=== PATIENT | female | born 1930 | race Caucasian/White ===

== ENCOUNTER 2018-03-26 01:05 | Inpatient (IN) | payer MEDICARE ==
[2018-03-26] MEDS ORDERED: SODIUM CHLORIDE 0.9% 500 ML IV ONE (02:17)
--- NOTE | 2018-03-26 02:26 | ED ---
Altered Mental Status HPI - General Source: police, EMS Mode of arrival: EMS Limitations: no limitations <Radha Rivera - Last Filed: 03/26/18 02:18> <Ike Nathan - Last Filed: 03/26/18 07:22> - General Chief Complaint: Altered Mental Status Stated Complaint: Altered mental status Time Seen by Provider: 03/26/18 01:59 - History of Present Illness Initial Comments: 87-year-old female patient is brought to the emergency department by police for altered mental status. They state they received a 911 call; patient stated that she did know where she was and asked for help. Upon police arrival patient was quite confused. Police stated that her house was in disarray and she only had moldy cheese in the refridgerator and nothing else. Upon arrival patient remains confused. She is oriented 1 only. States does not know the date, year, or month that we're in. States that she feels fine. Denies any physical symptoms. Patient denies any recent rash, fever, chills, shortness breath, chest pain, abdominal pain, nausea, vomiting, diarrhea, constipation, back pain, numbness, tingling, dizziness, weakness, hematuria, dysuria, urinary urgency, urinary frequency, headache, visual changes, or any other complaints. (Radha Rivera) - Related Data Home Medications Medication Instructions Recorded Confirmed Levothyroxine Sodium [Synthroid] 50 mcg PO DAILY 03/26/18 03/26/18 Allergies Allergy/AdvReac Type Severity Reaction Status Date / Time Unable to Assess Allergy Verified 03/26/18 01:26 Review of Systems ROS Other: All systems not noted in ROS Statement are negative. <Radha Rivera - Last Filed: 03/26/18 02:18> ROS Other: All systems not noted in ROS Statement are negative. <Ike Nathan - Last Filed: 03/26/18 07:22> ROS Statement: Those systems with pertinent positive or pertinent negative responses have been documented in the HPI. Past Medical History Past Medical History: Eye Disorder Additional Past Medical History / Comment(s): Very limited History of Any Multi-Drug Resistant Organisms: None Reported Past Surgical History: Adenoidectomy, Appendectomy, Tonsillectomy Past Psychological History: Unable to Obtain Smoking Status: Never smoker Past Alcohol Use History: Rare Past Drug Use History: None Reported <Radha Rivera Estephanie - Last Filed: 03/26/18 02:18> General Exam Limitations: no limitations General appearance: alert, in no apparent distress, other (This is a thin appearing elderly female patient in no acute distress. Patient is quite pleasant but confused. Vital signs upon presentation are temperature 98.0F, pulse 83, respirations 18, blood pressure 127/64, pulse ox 99% on room air.) Eye exam: Present: normal appearance, PERRL, EOMI. Absent: scleral icterus, conjunctival injection, periorbital swelling ENT exam: Present: normal exam, normal oropharynx, mucous membranes moist Neck exam: Present: normal inspection. Absent: tenderness, meningismus, lymphadenopathy Respiratory exam: Present: normal lung sounds bilaterally. Absent: respiratory distress, wheezes, rales, rhonchi, stridor Cardiovascular Exam: Present: regular rate, normal rhythm, normal heart sounds. Absent: systolic murmur, diastolic murmur, rubs, gallop, clicks GI/Abdominal exam: Present: soft, normal bowel sounds. Absent: distended, tenderness, guarding, rebound, rigid Neurological exam: Present: alert, CN II-XII intact, other (Strength in all 4 extremities is 5/5.). Absent: oriented X3 (Oriented 1) Psychiatric exam: Present: normal affect, normal mood Skin exam: Present: warm, dry, intact, normal color. Absent: rash <Radha Rivera Estephanie - Last Filed: 03/26/18 02:18> Vital Signs 03/26/18 03/26/18 03/26/18 01:18 04:04 04:46 Temperature 98.0 F Pulse Rate 83 77 73 Respiratory 18 18 18 Rate Blood Pressure 127/64 157/106 154/64 O2 Sat by Pulse 99 100 100 Oximetry 03/26/18 03/26/18 03/26/18 05:48 06:26 07:20 Temperature Pulse Rate 70 65 68 Respiratory 18 18 18 Rate Blood Pressure 158/70 147/67 138/68 O2 Sat by Pulse 97 97 95 Oximetry Medical Decision Making - Lab Data Result diagrams: 03/26/18 02:20 03/26/18 02:20 <Ike Nathan - Last Filed: 03/26/18 07:22> - Lab Data Lab Results 03/26/18 03/26/1803/26/18 Range/Units 02:20 02:20 02:20 WBC 7.0 (3.8-10.6) k/uL RBC 4.38 (3.80-5.40) m/uL Hgb 13.8 (11.4-16.0) gm/dL Hct 40.2 (34.0-46.0) % MCV 91.8 (80.0-100.0) fL MCH 31.5 (25.0-35.0) pg MCHC 34.3 (31.0-37.0) g/dL RDW 12.6 (11.5-15.5) % Plt Count 286 (150-450) k/uL Neutrophils % 54 % Lymphocytes % 35 % Monocytes % 7 % Eosinophils % 1 % Basophils % 1 % Neutrophils # 3.7 (1.3-7.7) k/uL Lymphocytes # 2.5 (1.0-4.8) k/uL Monocytes # 0.5 (0-1.0) k/uL Eosinophils # 0.1 (0-0.7) k/uL Basophils # 0.0 (0-0.2) k/uL PT (9.0-12.0) sec INR (<1.2) APTT (22.0-30.0) sec Sodium 142 (137-145) mmol/L Potassium 4.4 (3.5-5.1) mmol/L Chloride 105 (98-107) mmol/L Carbon Dioxide 25 (22-30) mmol/L Anion Gap 12 mmol/L BUN 25 H (7-17) mg/dL Creatinine 1.03 (0.52-1.04) mg/dL Est GFR (CKD-EPI)AfAm 57 (>60 ml/min/1.73 sqM) Est GFR (CKD-EPI)NonAf 50 (>60 ml/min/1.73 sqM) Glucose 102 H (74-99) mg/dL POC Glucose (mg/dL) (75-99) mg/dL POC Glu Health Service Worker ID Calcium 9.3 (8.4-10.2) mg/dL Total Bilirubin 0.4 (0.2-1.3) mg/dL AST 23 (14-36) U/L ALT 26 (9-52) U/L Alkaline Phosphatase 62 (38-126) U/L Total Creatine Kinase 44 (30-135) U/L CK-MB (CK-2) 1.0 (0.0-2.4) ng/mL CK-MB (CK-2) Rel Index 2.3 Troponin I <0.012 (0.000-0.034) ng/mL Total Protein 6.5 (6.3-8.2) g/dL Albumin 4.1 (3.5-5.0) g/dL Urine Color Urine Appearance (Clear) Urine pH (5.0-8.0) Ur Specific [place] (1.001-1.035) Urine Protein (Negative) Urine Glucose (UA) (Negative) Urine Ketones (Negative) Urine Blood (Negative) Urine Nitrite (Negative) Urine Bilirubin (Negative) Urine Urobilinogen (<2.0) mg/dL Ur Leukocyte Esterase (Negative) Urine RBC (0-5) /hpf Urine WBC (0-5) /hpf Ur Squamous Epith Cells (0-4) /hpf Hyaline Casts (0-2) /lpf Urine Mucus (None) /hpf Urine Opiates Screen (NotDetected) Ur Oxycodone Screen (NotDetected) Urine Methadone Screen (NotDetected) Ur Propoxyphene Screen (NotDetected) Ur Barbiturates Screen (NotDetected) U Tricyclic Antidepress (NotDetected) Ur Phencyclidine Scrn (NotDetected) Ur Amphetamines Screen (NotDetected) U Methamphetamines Scrn (NotDetected) U Benzodiazepines Scrn (NotDetected) Urine Cocaine Screen (NotDetected) U Marijuana (THC) Screen (NotDetected) 03/26/18 03/26/18 03/26/18 Range/Units 02:20 02:27 02:30 WBC (3.8-10.6) k/uL RBC (3.80-5.40) m/uL Hgb (11.4-16.0) gm/dL Hct (34.0-46.0) % MCV (80.0-100.0) fL MCH (25.0-35.0) pg MCHC (31.0-37.0) g/dL RDW (11.5-15.5) % Plt Count (150-450) k/uL Neutrophils % % Lymphocytes % % Monocytes % % Eosinophils % % Basophils % % Neutrophils # (1.3-7.7) k/uL Lymphocytes # (1.0-4.8) k/uL Monocytes # (0-1.0) k/uL Eosinophils # (0-0.7) k/uL Basophils # (0-0.2) k/uL PT 10.3 (9.0-12.0) sec INR 1.1 (<1.2) APTT 21.9 L (22.0-30.0) sec Sodium (137-145) mmol/L Potassium (3.5-5.1) mmol/L Chloride (98-107) mmol/L Carbon Dioxide (22-30) mmol/L Anion Gap mmol/L BUN (7-17) mg/dL Creatinine (0.52-1.04) mg/dL Est GFR (CKD-EPI)AfAm (>60 ml/min/1.73 sqM) Est GFR (CKD-EPI)NonAf (>60 ml/min/1.73 sqM) Glucose (74-99) mg/dL POC Glucose (mg/dL) 100 H (75-99) mg/dL POC Glu Health Service Worker ID Tripp, Talisha Calcium (8.4-10.2) mg/dL Total Bilirubin (0.2-1.3) mg/dL AST (14-36) U/L ALT (9-52) U/L Alkaline Phosphatase (38-126) U/L Total Creatine Kinase (30-135) U/L CK-MB (CK-2) (0.0-2.4) ng/mL CK-MB (CK-2) Rel Index Troponin I (0.000-0.034) ng/mL Total Protein (6.3-8.2) g/dL Albumin (3.5-5.0) g/dL Urine Color Yellow Urine Appearance Clear (Clear) Urine pH 5.5 (5.0-8.0) Ur Specific [place] 1.023 (1.001-1.035) Urine Protein Trace H (Negative) Urine Glucose (UA) Negative (Negative) Urine Ketones Trace H (Negative) Urine Blood Negative (Negative) Urine Nitrite Negative (Negative) Urine Bilirubin Negative (Negative) Urine Urobilinogen <2.0 (<2.0) mg/dL Ur Leukocyte Esterase Trace H (Negative) Urine RBC <1 (0-5) /hpf Urine WBC 3 (0-5) /hpf Ur Squamous Epith Cells 1 (0-4) /hpf Hyaline Casts 5 H (0-2) /lpf Urine Mucus Rare H (None) /hpf Urine Opiates Screen Not Detected (NotDetected) Ur Oxycodone Screen Not Detected (NotDetected) Urine Methadone Screen Not Detected (NotDetected) Ur Propoxyphene Screen Not Detected (NotDetected) Ur Barbiturates Screen Not Detected (NotDetected) U Tricyclic Antidepress Not Detected (NotDetected) Ur Phencyclidine Scrn Not Detected (NotDetected) Ur Amphetamines Screen Not Detected (NotDetected) U Methamphetamines Scrn Not Detected (NotDetected) U Benzodiazepines Scrn Not Detected (NotDetected) Urine Cocaine Screen Not Detected (NotDetected) U Marijuana (THC) Screen Not Detected (NotDetected) Disposition <Radha Rivera - Last Filed: 03/26/18 02:18> Is patient prescribed a controlled substance at d/c from ED?: No <Ike Nathan - Last Filed: 03/26/18 07:22> Clinical Impression: Dementia Disposition: ADMITTED IP TO THIS HOSP Condition: Poor Instructions: Altered Mental Status (ED) Referrals: None,Stated [Primary Care Provider] - 1-2 days
[2018-03-26 02:36] LABS: Basophils % (A) 1 %; Eosinophils # (A) 0.1 k/uL (0-0.7); Eosinophils % (A) 1 %; HCT 40.2 % (34.0-46.0); HGB 13.8 gm/dL (11.4-16.0); Lymphocytes # (A) 2.5 k/uL (1.0-4.8); Lymphocytes % (A) 35 %; MCH 31.5 pg (25.0-35.0); MCHC 34.3 g/dL (31.0-37.0); MCV 91.8 fL (80.0-100.0); Mean Platelet Volume 6.7; Monocytes # (A) 0.5 k/uL (0-1.0); Monocytes % (A) 7 %; Neutrophils # (A) 3.7 k/uL (1.3-7.7); Neutrophils % (A) 54 %; Platelet Count 286 k/uL (150-450); RBC 4.38 m/uL (3.80-5.40); RDW 12.6 % (11.5-15.5)
[2018-03-26 02:47] LABS: Albumin 4.1 g/dL (3.5-5.0); Calcium 9.3 mg/dL (8.4-10.2); Potassium 4.4 mmol/L (3.5-5.1); Total Bilirubin 0.4 mg/dL (0.2-1.3); Total Protein 6.5 g/dL (6.3-8.2)
[2018-03-26 02:48] LABS: Glucose,Whole Blood 100 mg/dL (75-99)
[2018-03-26 02:53] LABS: Appearance,Urine Clear (Clear); Bilirubin,Urine Negative (Negative); Blood,Urine Negative (Negative); Color,Urine Yellow; Glucose,Urine (UA) Negative (Negative); Hyaline Casts,Urine 5 /lpf (0-2); Ketones,Urine Trace (Negative); Leukocyte Esterase,Urine Trace (Negative); Mucus,Urine Rare /hpf; Nitrite,Urine Negative (Negative); PH, Urine 5.5 (5.0-8.0); Protein,Urine Trace (Negative); RBC,Urine <1 /hpf (0-5); Specific Gravity,Urine 1.023 (1.001-1.035); Squamous Epithelial Cell,Urine 1 /hpf (0-4); Urobilinogen,Urine <2.0 mg/dL (<2.0); WBC,Urine 3 /hpf (0-5)
[2018-03-26 02:56] LABS: Creatine Kinase 44 U/L (30-135)
[2018-03-26 02:59] LABS: INR 1.1 (<1.2); Prothrombin Time 10.3 sec (9.0-12.0)
[2018-03-26 02:59] LABS: Amphetamine Screen,Urine Not Detected (NotDetected); Barbiturate Screen,Urine Not Detected (NotDetected); Benzodiazepines Screen,Urine Not Detected (NotDetected); Cocaine Screen,Urine Not Detected (NotDetected); Methadone Screen, Urine Not Detected (NotDetected); Opiate Screen,Urine Not Detected (NotDetected); Oxycodone Screen, Urine Not Detected (NotDetected); Phencyclidine Screen,Urine Not Detected (NotDetected); Tricyclic Antidepressant,Urine Not Detected (NotDetected); Urn Cannabinoid Scrn Not Detected (NotDetected)
--- NOTE | 2018-03-26 03:00 | XR ---
EXAMINATION TYPE: XR chest 2V DATE OF EXAM: 03/26/2018 COMPARISON: NONE HISTORY: Altered mental status TECHNIQUE: Frontal and lateral views of the chest are obtained. FINDINGS: There is no heart failure nor confluent pneumonic infiltrate. Costophrenic angles are robert r. Thoracic aorta is atheromatous. Bones are osteopenic. IMPRESSION: No active cardiopulmonary disease. Atheromatous aorta. Normal heart.
[2018-03-26 03:09] LABS: Troponin I <0.012 ng/mL (0.000-0.034)
[2018-03-26] MEDS ORDERED: LORazepam 2 MG/ML INJ IV STA ×2 (03:17→04:01)
[2018-03-26 03:18] LABS: Partial Thromboplastin Time 21.9 sec (22.0-30.0)
[2018-03-26] MEDS ORDERED: NALOXONE 0.4 MG/ML 1 ML VIAL IV PRN (07:23)
--- NOTE | 2018-03-26 12:26 | P.HPIM ---
History of Present Illness H&P Date: 03/26/18 This is an 87-year-old female with past medical history of dementia was admitted to the hospital for confusion and altered mental status patient was more confused last night and called 911 so was brought to the hospital patient lives alone patient did give any history at this time and the family was available at bedside also not able to give any history at this time patient is still confused doesn't have any complaints at this time Review of systems unable to get due to the current condition of the patient Constitutional: No acute distress, confused Eyes: Anicteric sclerae, moist conjunctiva, no lid-lag PERRLA ENMT: NC/AT Oropharynx clear, no erythema, exudates Neck: Supple, Lungs: Clear to auscultation Clear to percussion Normal respiratory effort, no accessory muscle use Cardiovascular: Heart regular in rate and rhythm, No murmurs, gallops, or rubs No peripheral edema Abdominal: Soft Nontender, no guarding, rebound or rigidity Abdomen moving with respiration we that by the lesions are not Tao [place] will be on Skin: Normal temperature, tone, texture, turgor No induration No subcutaneous nodules No rash, lesions No ulcers Extremities: No digital cyanosis No clubbing Pedal pulses intact and symmetrical Radial pulses intact and symmetrical Normal gait and station No calf tenderness Psychiatric:Alert confused Neuro: Generalized weakness Past medical history dementia Surgical history unable to do not this time Social history patient lives alone unable to lower the patient smokes are not Laboratory Results - last 24 hr 03/26/18 03/26/18 03/26/18 02:20 02:20 02:20 WBC 7.0 RBC 4.38 Hgb 13.8 Hct 40.2 MCV 91.8 MCH 31.5 MCHC 34.3 RDW 12.6 Plt Count 286 Neutrophils % 54 Lymphocytes % 35 Monocytes % 7 Eosinophils % 1 Basophils % 1 Neutrophils # 3.7 Lymphocytes # 2.5 Monocytes # 0.5 Eosinophils # 0.1 Basophils # 0.0 PT INR APTT Sodium 142 Potassium 4.4 Chloride 105 Carbon Dioxide 25 Anion Gap 12 BUN 25 H Creatinine 1.03 Est GFR (CKD-EPI)AfAm 57 Est GFR (CKD-EPI)NonAf 50 Glucose 102 H POC Glucose (mg/dL) POC Glu Cooler Operator ID Calcium 9.3 Total Bilirubin 0.4 AST 23 ALT 26 Alkaline Phosphatase 62 Total Creatine Kinase 44 CK-MB (CK-2) 1.0 CK-MB (CK-2) Rel Index 2.3 Troponin I <0.012 Total Protein 6.5 Albumin 4.1 Urine Color Urine Appearance Urine pH Ur Specific [place] Urine Protein Urine Glucose (UA) Urine Ketones Urine Blood Urine Nitrite Urine Bilirubin Urine Urobilinogen Ur Leukocyte Esterase Urine RBC Urine WBC Ur Squamous Epith Cells Hyaline Casts Urine Mucus Urine Opiates Screen Ur Oxycodone Screen Urine Methadone Screen Ur Propoxyphene Screen Ur Barbiturates Screen U Tricyclic Antidepress Ur Phencyclidine Scrn Ur Amphetamines Screen U Methamphetamines Scrn U Benzodiazepines Scrn Urine Cocaine Screen U Marijuana (THC) Screen 03/26/18 03/26/18 03/26/18 02:20 02:27 02:30 WBC RBC Hgb Hct MCV MCH MCHC RDW Plt Count Neutrophils % Lymphocytes % Monocytes % Eosinophils % Basophils % Neutrophils # Lymphocytes # Monocytes # Eosinophils # Basophils # PT 10.3 INR 1.1 APTT 21.9 L Sodium Potassium Chloride Carbon Dioxide Anion Gap BUN Creatinine Est GFR (CKD-EPI)AfAm Est GFR (CKD-EPI)NonAf Glucose POC Glucose (mg/dL) 100 H POC Glu Cooler Operator ID Tripp, Talisha Calcium Total Bilirubin AST ALT Alkaline Phosphatase Total Creatine Kinase CK-MB (CK-2) CK-MB (CK-2) Rel Index Troponin I Total Protein Albumin Urine Color Yellow Urine Appearance Clear Urine pH 5.5 Ur Specific [place] 1.023 Urine Protein Trace H Urine Glucose (UA) Negative Urine Ketones Trace H Urine Blood Negative Urine Nitrite Negative Urine Bilirubin Negative Urine Urobilinogen <2.0 Ur Leukocyte Esterase Trace H Urine RBC <1 Urine WBC 3 Ur Squamous Epith Cells 1 Hyaline Casts 5 H Urine Mucus Rare H Urine Opiates Screen Not Detected Ur Oxycodone Screen Not Detected Urine Methadone Screen Not Detected Ur Propoxyphene Screen Not Detected Ur Barbiturates Screen Not Detected U Tricyclic Antidepress Not Detected Ur Phencyclidine Scrn Not Detected Ur Amphetamines Screen Not Detected U Methamphetamines Scrn Not Detected U Benzodiazepines Scrn Not Detected Urine Cocaine Screen Not Detected U Marijuana (THC) Screen Not Detected Vital Signs Temp Pulse Resp BP Pulse Ox 98.0 F 83 18 127/64 99 03/26/18 01:18 03/26/18 01:18 03/26/18 01:18 03/26/18 01:18 03/26/18 01:18 Assessment and plan Altered mental status exact etiology not clear we will check MRI of the brain Currently we will check for any source of infection Patient is confused and not able to make any decisions at this time Likely the patient have advanced dementia DVT and GI prophylaxis the patient is an ambulatory Past Medical History Past Medical History: Thyroid Disorder Additional Past Medical History / Comment(s): Sister and Cierra WEISS states that pt does not currently have a PCP and has not gone to the doctors much the past several years. Other hx: Severe memory impairment, hypothyroid, gait dysfunction, sinus problems. History of Any Multi-Drug Resistant Organisms: None Reported Past Surgical History: Adenoidectomy, Appendectomy, Tonsillectomy Additional Past Surgical History / Comment(s): Bilateral cataract removal with lens implants. Past Anesthesia/Blood Transfusion Reactions: No Reported Reaction Smoking Status: Never smoker - Past Family History Father Family Medical History: Myocardial Infarction (RI) Additional Family Medical History / Comment(s): Father of a RI at the age of 80 yrs. Mother Family Medical History: Dementia Brother(s) Family Medical History: Dementia Medications and Allergies Home Medications Medication Instructions Recorded Confirmed Type Levothyroxine Sodium [Synthroid] 50 mcg PO DAILY 03/26/18 03/26/18 History Allergies Allergy/AdvReac Type Severity Reaction Status Date / Time Unable to Assess Allergy Verified 03/26/18 07:42 Physical Exam Vitals: Vital Signs Temp Pulse Resp BP Pulse Ox 03/26/18 09:34 64 16 108/78 98 03/26/18 07:20 68 18 138/68 95 03/26/18 06:26 65 18 147/67 97 03/26/18 05:48 70 18 158/70 97 03/26/18 04:46 73 18 154/64 100 03/26/18 04:04 77 18 157/106 100 03/26/18 01:18 98.0 F 83 18 127/64 99 Intake and Output 03/25/18 03/26/18 03/26/18 22:59 06:59 14:59 Other: Weight 68.039 kg Results CBC & Chem 7: 03/26/18 02:20 03/26/18 02:20 Labs: Abnormal Lab Results - Last 24 Hours (Table) 03/26/18 03/26/1818 Range/Units 02:20 02:20 02:27 APTT 21.9 L (22.0-30.0) sec BUN 25 H (7-17) mg/dL Glucose 102 H (74-99) mg/dL POC Glucose (mg/dL) 100 H (75-99) mg/dL Urine Protein (Negative) Urine Ketones (Negative) Ur Leukocyte Esterase (Negative) Hyaline Casts (0-2) /lpf Urine Mucus (None) /hpf 03/26/18 Range/Units 02:30 APTT (22.0-30.0) sec BUN (7-17) mg/dL Glucose (74-99) mg/dL POC Glucose (mg/dL) (75-99) mg/dL Urine Protein Trace H (Negative) Urine Ketones Trace H (Negative) Ur Leukocyte Esterase Trace H (Negative) Hyaline Casts 5 H (0-2) /lpf Urine Mucus Rare H (None) /hpf Thrombosis Risk Factor Assmnt - Choose All That Apply Any of the Below Risk Factors Present?: Yes Other Risk Factors: Yes Each Risk Factor Represents 3 Points: Age 75 years or older Other congenital or acquired thrombophilia - If yes, enter type in comment: No Thrombosis Risk Factor Assessment Total Risk Factor Score: 3 Thrombosis Risk Factor Assessment Level: Moderate Risk
[2018-03-26] MEDS: LEVOTHYROXINE 50 MCG TAB PO SCH (12:47)
[2018-03-26] MEDS ORDERED: ONDANSETRON 4 MG/2 ML VIAL IVP PRN (13:51)
[2018-03-26] MEDS ORDERED: ACETAMINOPHEN TAB 325 MG TAB PO PRN (13:51)
--- NOTE | 2018-03-26 16:56 | XR ---
EXAMINATION TYPE: XR ribs bilat w pa chest xray DATE OF EXAM: 03/26/2018 COMPARISON: Today HISTORY: Bilateral rib pain. Fall. technique 9 views Findings Heart and mediastinum are within normal limits. Thoracic aorta is atheromatous. There is no pleural e ffusion or pneumothorax. I see no displaced rib fracture. Lungs are clear of infiltrate. IMPRESSION: No active cardiopulmonary disease. Normal heart. No rib fracture seen.
--- NOTE | 2018-03-26 17:11 | MR ---
MR brain without contrast HISTORY: Altered mental status, dementia Multiplanar multisequence imaging through the brain, no comparisons Fast brain protocol utilized due to patient's condition. Periventricular scattered and confluent hyperintensities present on inversion recovery and T2-weighte d sequences. Corpus callosum, pituitary, cervical medullary junction, cerebellopontine angles are wit hin normal limits. There is no restricted diffusion. No hemorrhage or hydrocephalus. Cortical atrophy is likely age-related. The orbits show symmetric appearance. There are normal vascular flow voids. IMPRESSION: Chronic small vessel ischemia, age related atrophy. Follow-up as indicated.
[2018-03-27] MEDS: LEVOTHYROXINE 50 MCG TAB PO SCH (06:05)
[2018-03-27] MEDS: ACETAMINOPHEN TAB 325 MG TAB PO PRN (08:30)
[2018-03-27 08:57] LABS: Basophils # (A) 0.1 k/uL (0-0.2); Basophils % (A) 1 %; Eosinophils # (A) 0.1 k/uL (0-0.7); Eosinophils % (A) 2 %; HCT 38.6 % (34.0-46.0); Lymphocytes # (A) 1.9 k/uL (1.0-4.8); Lymphocytes % (A) 32 %; MCH 31.1 pg (25.0-35.0); MCHC 33.8 g/dL (31.0-37.0); Mean Platelet Volume 6.6; Monocytes # (A) 0.4 k/uL (0-1.0); Monocytes % (A) 7 %; Neutrophils # (A) 3.3 k/uL (1.3-7.7); Neutrophils % (A) 57 %; Platelet Count 236 k/uL (150-450); RBC 4.19 m/uL (3.80-5.40); RDW 13.3 % (11.5-15.5); WBC 5.9 k/uL (3.8-10.6)
[2018-03-27 09:22] LABS: Albumin 3.6 g/dL (3.5-5.0); Potassium 4.7 mmol/L (3.5-5.1); Total Bilirubin 0.9 mg/dL (0.2-1.3); Total Protein 5.9 g/dL (6.3-8.2)
--- NOTE | 2018-03-27 16:05 | P.PN ---
Subjective Progress Note Date: 03/27/18 Principal diagnosis: Patient confused not able to give any history at this time Constitutional: No acute distress, conversant, pleasant Eyes: Anicteric sclerae, moist conjunctiva, no lid-lag PERRLA ENMT: Cranial nerves grossly intact Neck: Supple, FROM, no masses, or JVD No carotid bruits No thyromegaly Lungs: Clear to auscultation Clear to percussion Normal respiratory effort, no accessory muscle use Cardiovascular: Heart regular in rate and rhythm, No murmurs, gallops, or rubs No peripheral edema Abdominal: Soft Nontender, no guarding, rebound or rigidity Abdomen moving with respiration Skin: Normal temperature, tone, texture, turgor No induration No subcutaneous nodules No rash, lesions No ulcers Extremities: No digital cyanosis No clubbing Pedal pulses intact and symmetrical Radial pulses intact and symmetrical Normal gait and station No calf tenderness Psychiatric: Confused Neuro: Generalized weakness Vital Signs - 24 hr 03/26/18 03/27/18 03/27/18 23:00 05:00 15:00 Temperature 97.6 F 96.6 F L 97.6 F Pulse Rate [ 90 70 79 Right] Respiratory 16 16 18 Rate Blood Pressure 143/68 125/59 131/60 [Left Arm] O2 Sat by Pulse 97 96 98 Oximetry Diabetes panel 03/27/18 Range/Units 08:10 Sodium 139 (137-145) mmol/L Potassium 4.7 (3.5-5.1) mmol/L Chloride 103 (98-107) mmol/L Carbon Dioxide 26 (22-30) mmol/L BUN 15 (7-17) mg/dL Creatinine 0.87 (0.52-1.04) mg/dL Glucose 141 H (74-99) mg/dL Calcium 9.0 (8.4-10.2) mg/dL AST 23 (14-36) U/L ALT 24 (9-52) U/L Alkaline Phosphatase 50 (38-126) U/L Total Protein 5.9 L (6.3-8.2) g/dL Albumin 3.6 (3.5-5.0) g/dL Calcium panel 03/27/18 Range/Units 08:10 Calcium 9.0 (8.4-10.2) mg/dL Albumin 3.6 (3.5-5.0) g/dL Pituitary panel 03/27/18 Range/Units 08:10 Sodium 139 (137-145) mmol/L Potassium 4.7 (3.5-5.1) mmol/L Chloride 103 (98-107) mmol/L Carbon Dioxide 26 (22-30) mmol/L BUN 15 (7-17) mg/dL Creatinine 0.87 (0.52-1.04) mg/dL Glucose 141 H (74-99) mg/dL Calcium 9.0 (8.4-10.2) mg/dL Adrenal panel 03/27/18 Range/Units 08:10 Sodium 139 (137-145) mmol/L Potassium 4.7 (3.5-5.1) mmol/L Chloride 103 (98-107) mmol/L Carbon Dioxide 26 (22-30) mmol/L BUN 15 (7-17) mg/dL Creatinine 0.87 (0.52-1.04) mg/dL Glucose 141 H (74-99) mg/dL Calcium 9.0 (8.4-10.2) mg/dL Total Bilirubin 0.9 (0.2-1.3) mg/dL AST 23 (14-36) U/L ALT 24 (9-52) U/L Alkaline Phosphatase 50 (38-126) U/L Total Protein 5.9 L (6.3-8.2) g/dL Albumin 3.6 (3.5-5.0) g/dL ltered mental status exact etiology not clear MRI of the brain did not show any acute event Currently we will check for any source of infection, currently no evidence of sepsis Patient is confused and not able to make any decisions at this time Likely the patient have advanced dementia Patient cannot live alone and needs placement Objective - Vital Signs Vital signs: Vital Signs Temp 97.6 F 03/27/18 15:00 Pulse 79 03/27/18 15:00 Resp 18 03/27/18 15:00 BP 131/60 03/27/18 15:00 Pulse Ox 98 03/27/18 15:00 Intake & Output 03/26/18 03/27/18 03/27/18 18:59 06:59 18:59 Intake Total 590 Balance 590 Intake: Oral 590 Other: Voiding Method Toilet # Voids 1 2 2 # Bowel Movements 1 - Labs CBC & Chem 7: 03/27/18 08:10 03/27/18 08:10 Labs: Abnormal Lab Results - Last 24 Hours (Table) 03/27/18 Range/Units 08:10 Glucose 141 H (74-99) mg/dL Total Protein 5.9 L (6.3-8.2) g/dL
[2018-03-28] MEDS: LEVOTHYROXINE 50 MCG TAB PO SCH (06:36)
[2018-03-28] MEDS: ACETAMINOPHEN TAB 325 MG TAB PO PRN ×2 (07:03→21:23)
--- NOTE | 2018-03-28 12:58 | P.PN ---
Subjective Progress Note Date: 03/28/18 Principal diagnosis: Patient still confused prior to give any history Constitutional: Generalized weakness Eyes: Anicteric sclerae, moist conjunctiva, no lid-lag PERRLA ENMT: Cranial nerves grossly intact Neck: Supple, FROM, no masses, or JVD No carotid bruits No thyromegaly Lungs: Clear to auscultation Clear to percussion Normal respiratory effort, no accessory muscle use Cardiovascular: Heart regular in rate and rhythm, No murmurs, gallops, or rubs No peripheral edema Abdominal: Soft Nontender, no guarding, Skin: Normal temperature, tone, texture, turgor No induration No subcutaneous nodules No rash, lesions No ulcers Extremities: No digital cyanosis No clubbing Pedal pulses intact and symmetrical Radial pulses intact and symmetrical Normal gait and station No calf tenderness Psychiatric: Confused Neuro: Generalized weakness Most recent lab results Calcium 9.0 mg/dL (8.4-10.2) 03/27/18 08:10 Vital Signs - 24 hr 03/27/18 03/27/18 03/28/18 15:00 22:35 00:00 Temperature 97.6 F 97.1 F L Pulse Rate [ 79 78 79 Right] Respiratory 18 16 18 Rate Blood Pressure 131/60 141/68 [Left Arm] O2 Sat by Pulse 98 97 Oximetry 03/28/18 08:15 Temperature 97.3 F L Pulse Rate [ 67 Right] Respiratory 16 Rate Blood Pressure 128/59 [Left Arm] O2 Sat by Pulse 96 Oximetry ltered mental status exact etiology not clear MRI of the brain did not show any acute event No signs or symptoms of infection at this time but will monitor Patient is confused and not able to make any decisions at this time Likely the patient have advanced dementia Patient cannot live alone and needs placement Objective - Vital Signs Vital signs: Vital Signs Temp 97.3 F L 03/28/18 08:15 Pulse 67 03/28/18 08:15 Resp 16 03/28/18 08:15 BP 128/59 03/28/18 08:15 Pulse Ox 96 03/28/18 08:15 Intake & Output 03/27/18 03/28/18 03/28/18 18:59 06:59 18:59 Intake Total 1130 Balance 1130 Weight 68.039 kg Intake: Oral 1130 Other: Voiding Method Toilet Toilet Bedside Commode # Voids 2 2 1 - Labs CBC & Chem 7: 03/27/18 08:10 03/27/18 08:10
[2018-03-28 13:47] LABS: Basophils % (A) 1 %; Eosinophils # (A) 0.1 k/uL (0-0.7); Eosinophils % (A) 2 %; HCT 38.5 % (34.0-46.0); HGB 13.3 gm/dL (11.4-16.0); Lymphocytes # (A) 2.1 k/uL (1.0-4.8); Lymphocytes % (A) 34 %; MCH 31.3 pg (25.0-35.0); MCHC 34.5 g/dL (31.0-37.0); MCV 90.7 fL (80.0-100.0); Mean Platelet Volume 6.9; Monocytes # (A) 0.4 k/uL (0-1.0); Monocytes % (A) 6 %; Neutrophils # (A) 3.5 k/uL (1.3-7.7); Neutrophils % (A) 56 %; Platelet Count 260 k/uL (150-450); RBC 4.25 m/uL (3.80-5.40); RDW 12.5 % (11.5-15.5); WBC 6.2 k/uL (3.8-10.6)
[2018-03-28 14:10] LABS: Albumin 3.7 g/dL (3.5-5.0); Potassium 4.4 mmol/L (3.5-5.1); Total Bilirubin 0.5 mg/dL (0.2-1.3)
--- NOTE | 2018-03-28 14:21 | XR ---
EXAMINATION TYPE: XR chest 1V DATE OF EXAM: 03/28/2018 COMPARISON: 03/26/2018 HISTORY: Rule out aspiration pneumonia TECHNIQUE: Single frontal view of the chest is obtained. FINDINGS: Minimal platelike subsegmental atelectasis is horizontally oriented at the left lung base. There is no focal air space opacity, pleural effusion, or pneumothorax seen. The cardiac silhouette size is within normal limits. There is diffuse osseous demineralization. The osseous structures are intact. Mild right acromioclavicular arthropathy is noted. IMPRESSION: Minimal left basilar subsegmental atelectasis with no focal consolidation to suggest pne umonia.
[2018-03-29] MEDS: LEVOTHYROXINE 50 MCG TAB PO SCH (09:28)
--- NOTE | 2018-03-29 12:17 | P.PN ---
Subjective Progress Note Date: 03/29/18 Principal diagnosis: Patient still confused neither to give any history Constitutional: No acute distress, conversant, pleasant Eyes: Anicteric sclerae, moist conjunctiva, no lid-lag PERRLA ENMT: Cranial nerves grossly intact Neck: Supple, FROM, no masses, or JVD No carotid bruits No thyromegaly Lungs: Clear to auscultation Clear to percussion Normal respiratory effort, no accessory muscle use Cardiovascular: Heart regular in rate and rhythm, No murmurs, gallops, or rubs No peripheral edema Abdominal: Soft Nontender, no guarding, Skin: Normal temperature, tone, texture, turgor No induration No subcutaneous nodules No rash, lesions No ulcers Extremities: No digital cyanosis No clubbing Pedal pulses intact and symmetrical Radial pulses intact and symmetrical Normal gait and station No calf tenderness Psychiatric: Confused Neuro: Generalized weakness Vital Signs 03/26/18 03/26/18 03/26/18 01:18 04:04 04:46 Temperature 98.0 F Pulse Rate 83 77 73 Pulse Rate [ Right] Respiratory 18 18 18 Rate Blood Pressure 127/64 157/106 154/64 Blood Pressure [Left Arm] O2 Sat by Pulse 99 100 100 Oximetry 03/26/18 03/26/18 03/26/18 05:48 06:26 07:20 Temperature Pulse Rate 70 65 68 Pulse Rate [ Right] Respiratory 18 18 18 Rate Blood Pressure 158/70 147/67 138/68 Blood Pressure [Left Arm] O2 Sat by Pulse 97 97 95 Oximetry 03/26/18 03/26/18 03/26/18 09:34 14:10 23:00 Temperature 97.3 F L 97.6 F Pulse Rate 64 Pulse Rate [ 89 90 Right] Respiratory 16 18 16 Rate Blood Pressure 108/78 Blood Pressure 132/62 143/68 [Left Arm] O2 Sat by Pulse 98 100 97 Oximetry 03/27/18 03/27/18 03/27/18 05:00 15:00 22:35 Temperature 96.6 F L 97.6 F 97.1 F L Pulse Rate Pulse Rate [ 70 79 78 Right] Respiratory 16 18 16 Rate Blood Pressure Blood Pressure 125/59 131/60 141/68 [Left Arm] O2 Sat by Pulse 96 98 97 Oximetry 03/28/18 03/28/18 03/28/18 00:00 08:15 15:16 Temperature 97.3 F L 98 F Pulse Rate Pulse Rate [ 79 67 70 Right] Respiratory 18 16 20 Rate Blood Pressure Blood Pressure 128/59 145/80 [Left Arm] O2 Sat by Pulse 96 95 Oximetry 03/28/18 03/29/18 23:00 05:53 Temperature 96.7 F L 97.6 F Pulse Rate Pulse Rate [ 74 69 Right] Respiratory 16 20 Rate Blood Pressure Blood Pressure 154/92 103/52 [Left Arm] O2 Sat by Pulse 99 96 Oximetry Laboratory Last Values WBC 6.2 k/uL (3.8-10.6) 03/28/18 13:29 RBC 4.25 m/uL (3.80-5.40) 03/28/18 13:29 Hgb 13.3 gm/dL (11.4-16.0) 03/28/18 13:29 Hct 38.5 % (34.0-46.0) 03/28/18 13:29 MCV 90.7 fL (80.0-100.0) 03/28/18 13:29 MCH 31.3 pg (25.0-35.0) 03/28/18 13:29 MCHC 34.5 g/dL (31.0-37.0) 03/28/18 13:29 RDW 12.5 % (11.5-15.5) 03/28/18 13:29 Plt Count 260 k/uL (150-450) 03/28/18 13:29 Neutrophils % 56 % 03/28/18 13:29 Lymphocytes % 34 % 03/28/18 13:29 Monocytes % 6 % 03/28/18 13:29 Eosinophils % 2 % 03/28/18 13:29 Basophils % 1 % 03/28/18 13:29 Neutrophils # 3.5 k/uL (1.3-7.7) 03/28/18 13:29 Lymphocytes # 2.1 k/uL (1.0-4.8) 03/28/18 13:29 Monocytes # 0.4 k/uL (0-1.0) 03/28/18 13:29 Eosinophils # 0.1 k/uL (0-0.7) 03/28/18 13:29 Basophils # 0.0 k/uL (0-0.2) 03/28/18 13:29 PT 10.3 sec (9.0-12.0) 03/26/18 02:20 INR 1.1 (<1.2) 03/26/18 02:20 APTT 21.9 sec (22.0-30.0) L 03/26/18 02:20 Sodium 137 mmol/L (137-145) 03/28/18 13:29 Potassium 4.4 mmol/L (3.5-5.1) 03/28/18 13:29 Chloride 101 mmol/L (98-107) 03/28/18 13:29 Carbon Dioxide 25 mmol/L (22-30) 03/28/18 13:29 Anion Gap 11 mmol/L 03/28/18 13:29 BUN 14 mg/dL (7-17) 03/28/18 13:29 Creatinine 0.90 mg/dL (0.52-1.04) 03/28/18 13:29 Est GFR (CKD-EPI)AfAm 68 (>60 ml/min/1.73 sqM) 03/28/18 13:29 Est GFR (CKD-EPI)NonAf 59 (>60 ml/min/1.73 sqM) 03/28/18 13:29 Glucose 154 mg/dL (74-99) H 03/28/18 13:29 POC Glucose (mg/dL) 100 mg/dL (75-99) H 03/26/18 02:27 POC Glu Buttonhole Marker Talisha Krause 03/26/18 02:27 Calcium 9.0 mg/dL (8.4-10.2) 03/28/18 13:29 Total Bilirubin 0.5 mg/dL (0.2-1.3) 03/28/18 13:29 AST 22 U/L (14-36) 03/28/18 13:29 ALT 26 U/L (9-52) 03/28/18 13:29 Alkaline Phosphatase 61 U/L (38-126) 03/28/18 13:29 Total Creatine Kinase 44 U/L (30-135) 03/26/18 02:20 CK-MB (CK-2) 1.0 ng/mL (0.0-2.4) 03/26/18 02:20 CK-MB (CK-2) Rel Index 2.3 03/26/18 02:20 Troponin I <0.012 ng/mL (0.000-0.034) 03/26/18 02:20 Total Protein 6.0 g/dL (6.3-8.2) L 03/28/18 13:29 Albumin 3.7 g/dL (3.5-5.0) 03/28/18 13:29 Urine Color Yellow 03/26/18 02:30 Urine Appearance Clear (Clear) 03/26/18 02:30 Urine pH 5.5 (5.0-8.0) 03/26/18 02:30 Ur Specific [place] 1.023 (1.001-1.035) 03/26/18 02:30 Urine Protein Trace (Negative) H 03/26/18 02:30 Urine Glucose (UA) Negative (Negative) 03/26/18 02:30 Urine Ketones Trace (Negative) H 03/26/18 02:30 Urine Blood Negative (Negative) 03/26/18 02:30 Urine Nitrite Negative (Negative) 03/26/18 02:30 Urine Bilirubin Negative (Negative) 03/26/18 02:30 Urine Urobilinogen <2.0 mg/dL (<2.0) 03/26/18 02:30 Ur Leukocyte Esterase Trace (Negative) H 03/26/18 02:30 Urine RBC <1 /hpf (0-5) 03/26/18 02:30 Urine WBC 3 /hpf (0-5) 03/26/18 02:30 Ur Squamous Epith Cells 1 /hpf (0-4) 03/26/18 02:30 Hyaline Casts 5 /lpf (0-2) H 03/26/18 02:30 Urine Mucus Rare /hpf (None) H 03/26/18 02:30 Urine Opiates Screen Not Detected (NotDetected) 03/26/18 02:30 Ur Oxycodone Screen Not Detected (NotDetected) 03/26/18 02:30 Urine Methadone Screen Not Detected (NotDetected) 03/26/18 02:30 Ur Propoxyphene Screen Not Detected (NotDetected) 03/26/18 02:30 Ur Barbiturates Screen Not Detected (NotDetected) 03/26/18 02:30 U Tricyclic Antidepress Not Detected (NotDetected) 03/26/18 02:30 Ur Phencyclidine Scrn Not Detected (NotDetected) 03/26/18 02:30 Ur Amphetamines Screen Not Detected (NotDetected) 03/26/18 02:30 U Methamphetamines Scrn Not Detected (NotDetected) 03/26/18 02:30 U Benzodiazepines Scrn Not Detected (NotDetected) 03/26/18 02:30 Urine Cocaine Screen Not Detected (NotDetected) 03/26/18 02:30 U Marijuana (THC) Screen Not Detected (NotDetected) 03/26/18 02:30 ltered mental status exact etiology not clear MRI of the brain did not show any acute event Likely the confusion due to advanced dementia patient needs placement Patient is confused and not able to make any decisions at this time Currently no evidence of acute coronary syndrome or CVA Objective - Vital Signs Vital signs: Vital Signs Temp 97.6 F 03/29/18 05:53 Pulse 69 03/29/18 05:53 Resp 20 03/29/18 05:53 BP 103/52 03/29/18 05:53 Pulse Ox 96 03/29/18 05:53 Intake & Output 03/28/18 03/29/18 03/29/18 18:59 06:59 18:59 Intake Total 590 Balance 590 Intake: Oral 590 Other: Voiding Method Toilet Toilet Toilet Bedside Commode # Voids 1 1 - Labs CBC & Chem 7: 03/28/18 13:29 03/28/18 13:29 Labs: Abnormal Lab Results - Last 24 Hours (Table) 03/28/18 Range/Units 13:29 Glucose 154 H (74-99) mg/dL Total Protein 6.0 L (6.3-8.2) g/dL
[2018-03-29 15:17] VITALS: RESP 16
[2018-03-29] MEDS: ACETAMINOPHEN TAB 325 MG TAB PO PRN (19:58)
[2018-03-29] MEDS ORDERED: HALOPERIDOL LACTATE 5 MG/ML 1 ML VIAL IM PRN (22:51)
[2018-03-30] MEDS: LEVOTHYROXINE 50 MCG TAB PO SCH (06:54)
--- NOTE | 2018-03-30 14:53 | P.PN ---
Subjective Progress Note Date: 03/30/18 Principal diagnosis: Confused not able to give any history Vital Signs - 24 hr 03/29/18 22:51 Temperature 96.2 F L Pulse Rate [ 86 Right] Respiratory 16 Rate Blood Pressure 156/80 [Left Arm] O2 Sat by Pulse 98 Oximetry Constitutional: No acute distress, conversant, pleasant Eyes: Anicteric sclerae, moist conjunctiva, no lid-lag PERRLA ENMT: NC/AT Oropharynx clear, no erythema, exudates Neck: Supple, FROM, no masses, or JVD No carotid bruits No thyromegaly Lungs: Clear to auscultation Clear to percussion Normal respiratory effort, no accessory muscle use Cardiovascular: Heart regular in rate and rhythm, No murmurs, gallops, or rubs No peripheral edema Abdominal: Soft Nontender, no guarding, rebound or rigidity Skin: Normal temperature, tone, texture, turgor No induration No subcutaneous nodules No rash, lesions No ulcers Extremities: No digital cyanosis No clubbing Pedal pulses intact and symmetrical Radial pulses intact and symmetrical Normal gait and station No calf tenderness Psychiatric: Confused Neuro: Generalized weakness ltered mental status exact etiology not clear MRI of the brain did not show any acute event Likely the confusion due to advanced dementia patient needs placement Patient will be discharged to an assisted living in a.m. Overall stable and in no distress Objective - Vital Signs Vital signs: Vital Signs Temp 96.2 F L 03/29/18 22:51 Pulse 86 03/29/18 22:51 Resp 16 03/29/18 22:51 BP 156/80 03/29/18 22:51 Pulse Ox 98 03/29/18 22:51 Intake & Output 03/29/18 03/30/18 03/30/18 18:59 06:59 18:59 Other: Voiding Method Toilet Toilet Toilet # Voids 4 2 - Labs CBC & Chem 7: 03/28/18 13:29 03/28/18 13:29
[2018-03-31] MEDS: LEVOTHYROXINE 50 MCG TAB PO SCH (06:32)
[2018-03-31 07:26] VITALS: BP 135/67; PULSE 63; TEMP 97.9
[2018-03-31] MEDS ORDERED: TUBERCULIN PPD (SKIN TEST) 5 UNIT/0.1 ML (MDV) VIAL INTRADERMA ONE (09:17)
--- NOTE | 2018-03-31 10:02 | P.DS ---
Providers Date of admission: 03/26/18 07:23 Attending physician: Jones Rivas MD Is an 87-year-old female with past medical history of hypothyroidism and dementia that has been getting worse admitted to the hospital for confusion no evidence of CVA per MRI no evidence of infection the patient continued to be confused Appears it appears that the confusion has been stable during the hospital stay and appears to be advanced dementia Patient will not be able to take care of herself alone so recommended placement and patient will be transferred to assist living No chest pain no shortness of breath During the hot sensate patient remained stable Constitutional: No acute distress, conversant, pleasant Eyes: Anicteric sclerae, moist conjunctiva, no lid-lag PERRLA ENMT: Cranial nerves grossly intact Neck: Supple, FROM, no masses, or JVD No carotid bruits No thyromegaly Lungs: Clear to auscultation Clear to percussion Normal respiratory effort, no accessory muscle use Cardiovascular: Heart regular in rate and rhythm, No murmurs, gallops, or rubs No peripheral edema Abdominal: Soft Nontender, no guarding, rebound or rigidity Abdomen moving with respiration Normoactive bowel sounds No hepatomegaly, No splenomegaly No palpable mass No abdominal wall hernia noted Skin: Normal temperature, tone, texture, turgor No induration No subcutaneous nodules No rash, lesions No ulcers Extremities: No digital cyanosis No clubbing Pedal pulses intact and symmetrical Radial pulses intact and symmetrical Normal gait and station No calf tenderness Psychiatric: Confused Neuro: Generalized weakness Vital Signs (72 hours) 03/28/18 03/28/18 03/29/18 15:16 23:00 05:53 Temperature 98 F 96.7 F L 97.6 F Pulse Rate [ 70 74 69 Right] Respiratory 20 16 20 Rate Blood Pressure 145/80 154/92 103/52 [Left Arm] O2 Sat by Pulse 95 99 96 Oximetry 03/29/18 03/29/18 03/30/18 14:10 22:51 14:20 Temperature 98.0 F 96.2 F L 96.8 F L Pulse Rate [ 71 86 75 Right] Respiratory 16 16 16 Rate Blood Pressure 102/66 156/80 141/65 [Left Arm] O2 Sat by Pulse 99 98 97 Oximetry 03/30/18 03/31/18 23:00 07:00 Temperature 97.0 F L 97.9 F Pulse Rate [ 65 63 Right] Respiratory 16 16 Rate Blood Pressure 143/91 135/67 [Left Arm] O2 Sat by Pulse 96 94 L Oximetry Assessment and plan Confusion likely due to advanced dementia no evidence of CVA or infection during this hospital stay Patient will be transferred to an assisted living Hypothyroidism review of resume home medication CONCERNS of the family has been addressed Primary care physician: Stated None Patient Condition at Discharge: Poor Plan - Discharge Summary Discharge Rx Participant: No New Discharge Prescriptions: New Acetaminophen Tab [Tylenol] 650 mg PO Q6HR PRN tab PRN Reason: Mild Pain Or Fever > 100.5 Continue Levothyroxine Sodium [Synthroid] 50 mcg PO DAILY Discharge Medication List Levothyroxine Sodium [Synthroid] 50 mcg PO DAILY 03/26/18 [History] Acetaminophen Tab [Tylenol] 650 mg PO Q6HR PRN tab 03/31/18 [Rx] Follow up Appointment(s)/Referral(s): None,Stated [Primary Care Provider] - 1-2 days Patient Instructions/Handouts: Altered Mental Status (ED) Discharge Disposition: TRANSFER TO SNF/ECF
== END 2018-03-31 14:47 | DRG 884 ==
LOC: EC 01:05 → 5MS5E 07:23
PROVIDERS: ADMIT Family Medicine; ATTEND Family Medicine
DX: F03.90 Unspecified dementia, unspecified severity, without behavioral disturbance, psychotic disturbance, mood disturbance, and anxiety (principal); E03.9 Hypothyroidism, unspecified; Z82.49 Family history of ischemic heart disease and other diseases of the circulatory system; Z96.1 Presence of intraocular lens; Z98.41 Cataract extraction status, right eye; Z98.42 Cataract extraction status, left eye; Z60.2 Problems related to living alone; Z79.890 Hormone replacement therapy
CPT/HCPCS: 36415; 70551; 71045; 71046; 71111; 80053; 80306; 81001; 82550; 82553; 84484; 85025; 85610; 85730; 93005; 96361; 96374; 96376; 99285

== ENCOUNTER 2018-05-10 19:37 | Emergency (ER) | payer MEDICARE ==
--- NOTE | 2018-05-10 20:20 | ED ---
Syncope HPI - General Source: patient, EMS, RN notes reviewed, old records reviewed Mode of arrival: EMS - History of Present Illness MD Complaint: other <Eladio Styles - Last Filed: 05/10/18 21:07> <Ike Nathan - Last Filed: 05/10/18 22:51> - General Stated Complaint: poss syncope Time Seen by Provider: 05/10/18 19:37 - History of Present Illness Initial Comments: This 87-year-old female was brought in by EMS for evaluation of a possible syncopal episode. Patient was found have a blood pressure 70/30 after to have a shower EMS found 1:3080 is complete report from 2 caregivers that with her whether the patient and she passed out or not she currently try to escape when she got a shower was caught before she get herself and fall. She does have a history dementia and is a poor historian. No reports of fevers chills nausea vomiting sweats or other symptoms. (Eladio Styles) - Related Data Home Medications Medication Instructions Recorded Confirmed Levothyroxine Sodium [Synthroid] 50 mcg PO DAILY 03/26/18 03/26/18 Previous Rx's Medication Instructions Recorded Acetaminophen Tab [Tylenol] 650 mg PO Q6HR PRN tab 03/31/18 Allergies Allergy/AdvReac Type Severity Reaction Status Date / Time erythromycin base Allergy Unknown Verified 03/29/18 10:29 Penicillins Allergy Unknown Verified 03/29/18 10:29 Review of Systems ROS Other: All systems not noted in ROS Statement are negative. <Eladio Styles - Last Filed: 05/10/18 21:07> ROS Other: All systems not noted in ROS Statement are negative. <Ike Nathan - Last Filed: 05/10/18 22:51> ROS Statement: Those systems with pertinent positive or pertinent negative responses have been documented in the HPI. Past Medical History Past Medical History: Thyroid Disorder Additional Past Medical History / Comment(s): Sister and Cierra WEISS states that pt does not currently have a PCP and has not gone to the doctors much the past several years. Other hx: Severe memory impairment, hypothyroid, gait dysfunction, sinus problems. History of Any Multi-Drug Resistant Organisms: None Reported Past Surgical History: Adenoidectomy, Appendectomy, Tonsillectomy Additional Past Surgical History / Comment(s): Bilateral cataract removal with lens implants. Past Anesthesia/Blood Transfusion Reactions: No Reported Reaction Smoking Status: Never smoker - Past Family History Father Family Medical History: Myocardial Infarction (DC) Additional Family Medical History / Comment(s): Father of a DC at the age of 80 yrs. Mother Family Medical History: Dementia Brother(s) Family Medical History: Dementia <JensenEladio - Last Filed: 05/10/18 21:07> General Exam Limitations: altered mental status General appearance: alert, in no apparent distress Head exam: Present: other (She does demonstrate balding) Eye exam: Present: normal appearance, PERRL, EOMI. Absent: scleral icterus, conjunctival injection, periorbital swelling ENT exam: Present: mucous membranes dry Neck exam: Present: normal inspection. Absent: tenderness, meningismus, lymphadenopathy Respiratory exam: Present: normal lung sounds bilaterally. Absent: respiratory distress, wheezes, rales, rhonchi, stridor Cardiovascular Exam: Present: regular rate, normal rhythm, normal heart sounds. Absent: systolic murmur, diastolic murmur, rubs, gallop, clicks GI/Abdominal exam: Present: soft, normal bowel sounds. Absent: distended, tenderness, guarding, rebound, rigid Extremities exam: Present: normal inspection, full ROM, normal capillary refill. Absent: tenderness, pedal edema, joint swelling, calf tenderness Back exam: Present: normal inspection Neurological exam: Present: alert, altered, CN II-XII intact Psychiatric exam: Present: normal affect, normal mood Skin exam: Present: warm, dry, intact, normal color. Absent: rash <Eladio Styles - Last Filed: 05/10/18 21:07> <Ike Nathan - Last Filed: 05/10/18 22:51> - General Exam Comments Initial Comments: This a well-developed well-nourished awake alert but confused female (Eladio Styles) Course <Eladio Styles - Last Filed: 05/10/18 21:07> <Ike Nathan - Last Filed: 05/10/18 22:51> Vital Signs 05/10/18 05/10/18 19:40 20:45 Temperature 97.3 F L Pulse Rate 77 88 Respiratory 18 20 Rate Blood Pressure 172/77 177/86 O2 Sat by Pulse 98 96 Oximetry - Reevaluation(s) Reevaluation #1: 05/10/18 21:07 The case is endorsed to Dr. Nathan at our shift change. (Eladio Styles) EKG Findings - EKG Results: EKG: interpreted by ERMD, sinus rhythm (Sinus rhythm rate is 74. Interval 204 QRS duration 84 QT since QTC 44/[address]-T wave changes there is some nonspecific ST configuration however.) <Eladio Styles - Last Filed: 05/10/18 21:07> Medical Decision Making - Lab Data Result diagrams: 05/10/18 19:55 05/10/18 19:55 <Eladio Styles - Last Filed: 05/10/18 21:07> - Lab Data Result diagrams: 05/10/18 19:55 05/10/18 19:55 <Ike Nathan - Last Filed: 05/10/18 22:51> - Lab Data Lab Results 05/10/18 05/10/18 05/10/18 Range/Units 19:55 19:55 19:55 WBC 7.2 (3.8-10.6) k/uL RBC 4.57 (3.80-5.40) m/uL Hgb 14.0 (11.4-16.0) gm/dL Hct 42.0 (34.0-46.0) % MCV 91.9 (80.0-100.0) fL MCH 30.7 (25.0-35.0) pg MCHC 33.4 (31.0-37.0) g/dL RDW 12.9 (11.5-15.5) % Plt Count 286 (150-450) k/uL Neutrophils % (Manual) 38 % Lymphocytes % (Manual) 55 % Monocytes % (Manual) 4 % Eosinophils % (Manual) 2 % Basophils % (Manual) 1 % Neutrophils # (Manual) 2.74 (1.3-7.7) k/uL Lymphocytes # (Manual) 3.96 (1.0-4.8) k/uL Monocytes # (Manual) 0.29 (0-1.0) k/uL Eosinophils # (Manual) 0.14 (0-0.7) k/uL Basophils # (Manual) 0.07 (0-0.2) k/uL Nucleated RBCs 0 (0-0) /100 WBC Manual Slide Review Performed Reactive Lymphocytes Present PT (9.0-12.0) sec INR (<1.2) APTT (22.0-30.0) sec Sodium 134 L (137-145) mmol/L Potassium 4.5 (3.5-5.1) mmol/L Chloride 97 L (98-107) mmol/L Carbon Dioxide 26 (22-30) mmol/L Anion Gap 11 mmol/L BUN 15 (7-17) mg/dL Creatinine 1.00 (0.52-1.04) mg/dL Est GFR (CKD-EPI)AfAm 60 (>60 ml/min/1.73 sqM) Est GFR (CKD-EPI)NonAf 52 (>60 ml/min/1.73 sqM) Glucose 127 H (74-99) mg/dL Calcium 9.2 (8.4-10.2) mg/dL Magnesium 1.8 (1.6-2.3) mg/dL Total Bilirubin 0.4 (0.2-1.3) mg/dL AST 26 (14-36) U/L ALT 24 (9-52) U/L Alkaline Phosphatase 94 (38-126) U/L Total Creatine Kinase 95 (30-135) U/L CK-MB (CK-2) 1.7 (0.0-2.4) ng/mL CK-MB (CK-2) Rel Index 1.8 Troponin I <0.012 (0.000-0.034) ng/mL Total Protein 6.2 L (6.3-8.2) g/dL Albumin 4.0 (3.5-5.0) g/dL Urine Color Urine Appearance (Clear) Urine pH (5.0-8.0) Ur Specific [place] (1.001-1.035) Urine Protein (Negative) Urine Glucose (UA) (Negative) Urine Ketones (Negative) Urine Blood (Negative) Urine Nitrite (Negative) Urine Bilirubin (Negative) Urine Urobilinogen (<2.0) mg/dL Ur Leukocyte Esterase (Negative) Urine RBC (0-5) /hpf Urine WBC (0-5) /hpf Ur Squamous Epith Cells (0-4) /hpf Amorphous Sediment (None) /hpf Hyaline Casts (0-2) /lpf Urine Mucus (None) /hpf 05/10/18 05/10/18 Range/Units 19:55 21:04 WBC (3.8-10.6) k/uL RBC (3.80-5.40) m/uL Hgb (11.4-16.0) gm/dL Hct (34.0-46.0) % MCV (80.0-100.0) fL MCH (25.0-35.0) pg MCHC (31.0-37.0) g/dL RDW (11.5-15.5) % Plt Count (150-450) k/uL Neutrophils % (Manual) % Lymphocytes % (Manual) % Monocytes % (Manual) % Eosinophils % (Manual) % Basophils % (Manual) % Neutrophils # (Manual) (1.3-7.7) k/uL Lymphocytes # (Manual) (1.0-4.8) k/uL Monocytes # (Manual) (0-1.0) k/uL Eosinophils # (Manual) (0-0.7) k/uL Basophils # (Manual) (0-0.2) k/uL Nucleated RBCs (0-0) /100 WBC Manual Slide Review Reactive Lymphocytes PT 10.5 (9.0-12.0) sec INR 1.1 (<1.2) APTT 23.2 (22.0-30.0) sec Sodium (137-145) mmol/L Potassium (3.5-5.1) mmol/L Chloride (98-107) mmol/L Carbon Dioxide (22-30) mmol/L Anion Gap mmol/L BUN (7-17) mg/dL Creatinine (0.52-1.04) mg/dL Est GFR (CKD-EPI)AfAm (>60 ml/min/1.73 sqM) Est GFR (CKD-EPI)NonAf (>60 ml/min/1.73 sqM) Glucose (74-99) mg/dL Calcium (8.4-10.2) mg/dL Magnesium (1.6-2.3) mg/dL Total Bilirubin (0.2-1.3) mg/dL AST (14-36) U/L ALT (9-52) U/L Alkaline Phosphatase (38-126) U/L Total Creatine Kinase (30-135) U/L CK-MB (CK-2) (0.0-2.4) ng/mL CK-MB (CK-2) Rel Index Troponin I (0.000-0.034) ng/mL Total Protein (6.3-8.2) g/dL Albumin (3.5-5.0) g/dL Urine Color Light Yellow Urine Appearance Clear (Clear) Urine pH 7.5 (5.0-8.0) Ur Specific [place] 1.008 (1.001-1.035) Urine Protein Negative (Negative) Urine Glucose (UA) Negative (Negative) Urine Ketones Negative (Negative) Urine Blood Negative (Negative) Urine Nitrite Negative (Negative) Urine Bilirubin Negative (Negative) Urine Urobilinogen <2.0 (<2.0) mg/dL Ur Leukocyte Esterase Small H (Negative) Urine RBC 1 (0-5) /hpf Urine WBC 1 (0-5) /hpf Ur Squamous Epith Cells <1 (0-4) /hpf Amorphous Sediment Rare H (None) /hpf Hyaline Casts 3 H (0-2) /lpf Urine Mucus Rare H (None) /hpf Disposition <Eladio Styles - Last Filed: 05/10/18 21:07> Is patient prescribed a controlled substance at d/c from ED?: No <Ike Nathan - Last Filed: 05/10/18 22:51> Clinical Impression: Syncope, near Disposition: HOME SELF-CARE Condition: Fair Instructions: Near Syncope (ED) Referrals: None,Stated [Primary Care Provider] - 1-2 days
[2018-05-10 20:29] LABS: MCH 30.7 pg (25.0-35.0); MCHC 33.4 g/dL (31.0-37.0); MCV 91.9 fL (80.0-100.0); Mean Platelet Volume 6.3; Platelet Count 286 k/uL (150-450); RBC 4.57 m/uL (3.80-5.40); RDW 12.9 % (11.5-15.5); WBC 7.2 k/uL (3.8-10.6)
[2018-05-10 20:34] LABS: INR 1.1 (<1.2); Partial Thromboplastin Time 23.2 sec (22.0-30.0); Prothrombin Time 10.5 sec (9.0-12.0)
[2018-05-10 20:36] LABS: Calcium 9.2 mg/dL (8.4-10.2); Magnesium 1.8 mg/dL (1.6-2.3); Potassium 4.5 mmol/L (3.5-5.1); Total Bilirubin 0.4 mg/dL (0.2-1.3); Total Protein 6.2 g/dL (6.3-8.2)
[2018-05-10 20:40] LABS: Basophils # (M) 0.07 k/uL (0-0.2); Eosinophils # (M) 0.14 k/uL (0-0.7); Lymphocytes # (M) 3.96 k/uL (1.0-4.8); Monocytes # (M) 0.29 k/uL (0-1.0); Neutrophils # (M) 2.74 k/uL (1.3-7.7); Neutrophils % (M) 38 %; Nucleated Red Blood Cells 0 /100 WBC (0-0); Total Cells Counted 100
[2018-05-10 20:41] LABS: Reactive Lymphocytes Present
[2018-05-10 20:45] LABS: Creatine Kinase 95 U/L (30-135)
[2018-05-10 20:52] VITALS: RESP 20
[2018-05-10 20:58] LABS: Creatine Kinase MB 1.7 ng/mL (0.0-2.4); Troponin I <0.012 ng/mL (0.000-0.034)
--- NOTE | 2018-05-10 21:06 | CT ---
EXAMINATION TYPE: CT brain wo con DATE OF EXAM: 05/10/2018 COMPARISON: MR brain dated 03/26/2018 HISTORY: Near syncopal episode. CT DLP: 979 mGycm Automated exposure control for dose reduction was used. TECHNIQUE: CT scan of the head is performed without contrast. FINDINGS: There is no acute intracranial hemorrhage or midline shift identified. There is diffuse v entricular and sulcal prominence consistent with diffuse age-related cerebral atrophy. Punctate old l acunar injuries are seen of the right basal ganglia and external capsules. Few dystrophic calcificati ons are also seen in the basal ganglia. There is atherosclerosis of the intracranial vasculature. The re is confluent low-attenuation in the periventricular white matter consistent with chronic small ves marcie ischemic change. The globes are intact and the visualized sinuses are clear. IMPRESSION: 1. No acute intracranial process. 2. 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 Cereb ral atrophy is also noted, likely age related.
--- NOTE | 2018-05-10 21:10 | XR ---
EXAMINATION TYPE: XR chest 2V DATE OF EXAM: 05/10/2018 COMPARISON: 03/28/2018 HISTORY: Altered mental status. Near syncopal episode. TECHNIQUE: Frontal and lateral views of the chest are obtained. FINDINGS: There is pulmonary per inflation and biapical lucency compatible with underlying COPD. The re is no focal air space opacity, pulmonary vascular congestion, or pneumothorax seen. Trace right pl eural effusion is seen. The cardiac silhouette size is within normal limits. The osseous structures are diffusely demineralized. IMPRESSION: Trace right pleural effusion and radiographic sequela of COPD. No focal consolidation to suggest pneumonia.
[2018-05-10 21:30] LABS: Amorphous Sediment,Urine Rare /hpf; Appearance,Urine Clear (Clear); Bilirubin,Urine Negative (Negative); Blood,Urine Negative (Negative); Color,Urine Light Yellow; Glucose,Urine (UA) Negative (Negative); Hyaline Casts,Urine 3 /lpf (0-2); Ketones,Urine Negative (Negative); Leukocyte Esterase,Urine Small (Negative); Mucus,Urine Rare /hpf; Nitrite,Urine Negative (Negative); PH, Urine 7.5 (5.0-8.0); Protein,Urine Negative (Negative); RBC,Urine 1 /hpf (0-5); Specific Gravity,Urine 1.008 (1.001-1.035); Squamous Epithelial Cell,Urine <1 /hpf (0-4); Urobilinogen,Urine <2.0 mg/dL (<2.0); WBC,Urine 1 /hpf (0-5)
[2018-05-10 23:42] VITALS: BP 158/78; PULSE 79; TEMP 98.6
== END 2018-05-10 23:42 | disposition home or self-care (01) ==
LOC: EC 19:37
DX: R55 Syncope and collapse (principal); R03.1 Nonspecific low blood-pressure reading; E03.9 Hypothyroidism, unspecified; Z98.890 Other specified postprocedural states; Z79.899 Other long term (current) drug therapy; Z88.0 Allergy status to penicillin; Z88.1 Allergy status to other antibiotic agents
CPT/HCPCS: 36415; 70450; 71046; 80053; 81001; 82550; 82553; 83735; 84484; 85025; 85610; 85730; 93005; 99285

== ENCOUNTER 2018-05-21 19:22 | Emergency (ER) | payer MEDICARE ==
[2018-05-21 19:29] VITALS: TEMP 97.5
--- NOTE | 2018-05-21 19:45 | ED ---
Syncope HPI - General Chief Complaint: Syncope Stated Complaint: altered mental status Time Seen by Provider: 05/21/18 19:34 Source: EMS Mode of arrival: ambulatory Limitations: altered mental status - History of Present Illness Initial Comments: 87 years old female comes from long-term she has a history of dementia today while coming out of the shower she fell down according to the staff there she passed out for 10 minutes on arrival she is awake alert no complaints at all she denies any head injury no neck pain no chest pain no shortness of breath no abdominal pain no weakness of upper or lower extremities no injury to the upper or lower extremities - Related Data Home Medications Medication Instructions Recorded Confirmed Acetaminophen Tab [Tylenol Tab] 650 mg PO Q4H PRN 05/21/18 05/21/18 Atorvastatin [Lipitor] 20 mg PO HS 05/21/18 05/21/18 Cetirizine HCl 10 mg PO HS 05/21/18 05/21/18 Ergocalciferol (Vitamin D2) 50,000 unit PO Q7D 05/21/18 05/21/18 [Vitamin D2] Escitalopram [Lexapro] 20 mg PO DAILY 05/21/18 05/21/18 Levothyroxine Sodium [Synthroid] 75 mcg PO DAILY 05/21/18 05/21/18 Memantine [Namenda] 10 mg PO DAILY 05/21/18 05/21/18 busPIRone HCl [Buspar] 10 mg PO TID 05/21/18 05/21/18 Allergies Allergy/AdvReac Type Severity Reaction Status Date / Time erythromycin base Allergy Unknown Verified 05/21/18 19:44 Penicillins Allergy Unknown Verified 05/21/18 19:44 Review of Systems ROS Statement: Those systems with pertinent positive or pertinent negative responses have been documented in the HPI. ROS Other: All systems not noted in ROS Statement are negative. Past Medical History Past Medical History: Thyroid Disorder Additional Past Medical History / Comment(s): Sister and Cierra WEISS states that pt does not currently have a PCP and has not gone to the doctors much the past several years. Other hx: Severe memory impairment, hypothyroid, gait dysfunction, sinus problems. History of Any Multi-Drug Resistant Organisms: None Reported Past Surgical History: Adenoidectomy, Appendectomy, Tonsillectomy Additional Past Surgical History / Comment(s): Bilateral cataract removal with lens implants. Past Anesthesia/Blood Transfusion Reactions: No Reported Reaction Past Psychological History: No Psychological Hx Reported Smoking Status: Never smoker - Past Family History Father Family Medical History: Myocardial Infarction ([place]) Additional Family Medical History / Comment(s): Father of a [place] at the age of 80 yrs. Mother Family Medical History: Dementia Brother(s) Family Medical History: Dementia General Exam - General Exam Comments Initial Comments: General: The patient is awake and alert, in no distress, and does not appear acutely ill. Infused but pleasant and cooperative Skin: Skin is warm and dry and no rashes or lesions are noted. Eye: Pupils are equal, round and reactive to light, extra-ocular movements are intact; there is normal conjunctiva bilaterally. Ears, nose, mouth and throat: There are moist mucous membranes and no oral lesions. Neck: The neck , no history of noticed no focal tenderness noticed over the cervical spine Cardiovascular: There is a regular rate and rhythm. No murmur, rub or gallop is appreciated. Respiratory: To auscultation bilateral, no wheezing no rhonchi no distress respiratory kaiser noticed Gastrointestinal: Soft, non-distended, non-tender abdomen without masses or organomegaly noted. There is no rebound or guarding present. Bowel sounds are unremarkable. Back: There is no tenderness to palpation in the midline. There is no obvious deformity. Musculoskeletal: Normal ROM, no tenderness, There is no pedal edema. There is no calf tenderness or swelling. No cords were appreciated. Neurological: CN II-XII intact, Cranial nerves III through XII are intact. There are no obvious motor or sensory deficits. Coordination appears grossly intact. Speech is normal. Psychiatric: Cooperative, able to follow the commands wasn't cooperative but confused Limitations: altered mental status Course Vital Signs 05/21/18 19:24 Temperature 97.5 F L Pulse Rate 65 Respiratory 20 Rate Blood Pressure 184/79 O2 Sat by Pulse 100 Oximetry CBC, comp his metabolic panel, chest x-ray of the unremarkable, chest x-ray, head CT and troponin are unremarkable, orthostatic is negative , she will be discharged, urinalysis is unremarkable so are the orthostatics she be gone back to her residence EKG Findings - EKG Comments: EKG Findings:: KG is normal sinus ventricular rate is 64 MT interval is 186 noticed duration is 88 QT/QTc is 466/480 review of of the EKG does not reveal any ST elevation or ST depression's T-wave inversion in lead aVR Medical Decision Making - Lab Data Result diagrams: 05/21/18 19:36 05/21/18 19:36 Lab Results 05/21/18 05/21/18 05/21/18 Range/Units 19:36 19:36 19:36 WBC 7.6 (3.8-10.6) k/uL RBC 4.88 (3.80-5.40) m/uL Hgb 14.6 (11.4-16.0) gm/dL Hct 43.8 (34.0-46.0) % MCV 89.7 (80.0-100.0) fL MCH 29.9 (25.0-35.0) pg MCHC 33.3 (31.0-37.0) g/dL RDW 12.5 (11.5-15.5) % Plt Count 303 (150-450) k/uL Neutrophils % 43 % Lymphocytes % 43 % Monocytes % 7 % Eosinophils % 3 % Basophils % 1 % Neutrophils # 3.3 (1.3-7.7) k/uL Lymphocytes # 3.3 (1.0-4.8) k/uL Monocytes # 0.5 (0-1.0) k/uL Eosinophils # 0.3 (0-0.7) k/uL Basophils # 0.1 (0-0.2) k/uL PT (9.0-12.0) sec INR (<1.2) APTT (22.0-30.0) sec Sodium 136 L (137-145) mmol/L Potassium 4.2 (3.5-5.1) mmol/L Chloride 100 (98-107) mmol/L Carbon Dioxide 26 (22-30) mmol/L Anion Gap 10 mmol/L BUN 18 H (7-17) mg/dL Creatinine 1.10 H (0.52-1.04) mg/dL Est GFR (CKD-EPI)AfAm 53 (>60 ml/min/1.73 sqM) Est GFR (CKD-EPI)NonAf 46 (>60 ml/min/1.73 sqM) Glucose 122 H (74-99) mg/dL Calcium 9.4 (8.4-10.2) mg/dL Total Bilirubin 0.4 (0.2-1.3) mg/dL AST 35 (14-36) U/L ALT 34 (9-52) U/L Alkaline Phosphatase 74 (38-126) U/L Total Creatine Kinase 85 (30-135) U/L CK-MB (CK-2) 1.1 (0.0-2.4) ng/mL CK-MB (CK-2) Rel Index 1.3 Troponin I <0.012 (0.000-0.034) ng/mL Total Protein 6.5 (6.3-8.2) g/dL Albumin 4.1 (3.5-5.0) g/dL Urine Color Urine Appearance (Clear) Urine pH (5.0-8.0) Ur Specific Steens (1.001-1.035) Urine Protein (Negative) Urine Glucose (UA) (Negative) Urine Ketones (Negative) Urine Blood (Negative) Urine Nitrite (Negative) Urine Bilirubin (Negative) Urine Urobilinogen (<2.0) mg/dL Ur Leukocyte Esterase (Negative) Urine RBC (0-5) /hpf Urine WBC (0-5) /hpf Urine Bacteria (None) /hpf Hyaline Casts (0-2) /lpf Urine Mucus (None) /hpf 05/21/18 05/21/18 Range/Units 19:36 20:57 WBC (3.8-10.6) k/uL RBC (3.80-5.40) m/uL Hgb (11.4-16.0) gm/dL Hct (34.0-46.0) % MCV (80.0-100.0) fL MCH (25.0-35.0) pg MCHC (31.0-37.0) g/dL RDW (11.5-15.5) % Plt Count (150-450) k/uL Neutrophils % % Lymphocytes % % Monocytes % % Eosinophils % % Basophils % % Neutrophils # (1.3-7.7) k/uL Lymphocytes # (1.0-4.8) k/uL Monocytes # (0-1.0) k/uL Eosinophils # (0-0.7) k/uL Basophils # (0-0.2) k/uL PT 9.9 (9.0-12.0) sec INR 1.0 (<1.2) APTT 20.7 L (22.0-30.0) sec Sodium (137-145) mmol/L Potassium (3.5-5.1) mmol/L Chloride (98-107) mmol/L Carbon Dioxide (22-30) mmol/L Anion Gap mmol/L BUN (7-17) mg/dL Creatinine (0.52-1.04) mg/dL Est GFR (CKD-EPI)AfAm (>60 ml/min/1.73 sqM) Est GFR (CKD-EPI)NonAf (>60 ml/min/1.73 sqM) Glucose (74-99) mg/dL Calcium (8.4-10.2) mg/dL Total Bilirubin (0.2-1.3) mg/dL AST (14-36) U/L ALT (9-52) U/L Alkaline Phosphatase (38-126) U/L Total Creatine Kinase (30-135) U/L CK-MB (CK-2) (0.0-2.4) ng/mL CK-MB (CK-2) Rel Index Troponin I (0.000-0.034) ng/mL Total Protein (6.3-8.2) g/dL Albumin (3.5-5.0) g/dL Urine Color Yellow Urine Appearance Clear (Clear) Urine pH 7.0 (5.0-8.0) Ur Specific Steens 1.014 (1.001-1.035) Urine Protein Negative (Negative) Urine Glucose (UA) Negative (Negative) Urine Ketones Negative (Negative) Urine Blood Negative (Negative) Urine Nitrite Negative (Negative) Urine Bilirubin Negative (Negative) Urine Urobilinogen <2.0 (<2.0) mg/dL Ur Leukocyte Esterase Trace H (Negative) Urine RBC <1 (0-5) /hpf Urine WBC 2 (0-5) /hpf Urine Bacteria Rare H (None) /hpf Hyaline Casts 1 (0-2) /lpf Urine Mucus Rare H (None) /hpf Disposition Clinical Impression: Syncope Disposition: HOME SELF-CARE Condition: Good Instructions: Syncope (ED) Is patient prescribed a controlled substance at d/c from ED?: No Referrals: None,Stated [Primary Care Provider] - 1-2 days
[2018-05-21 20:25] LABS: Basophils # (A) 0.1 k/uL (0-0.2); Basophils % (A) 1 %; Eosinophils # (A) 0.3 k/uL (0-0.7); Eosinophils % (A) 3 %; HCT 43.8 % (34.0-46.0); HGB 14.6 gm/dL (11.4-16.0); Lymphocytes # (A) 3.3 k/uL (1.0-4.8); Lymphocytes % (A) 43 %; MCH 29.9 pg (25.0-35.0); MCHC 33.3 g/dL (31.0-37.0); MCV 89.7 fL (80.0-100.0); Mean Platelet Volume 6.5; Monocytes # (A) 0.5 k/uL (0-1.0); Monocytes % (A) 7 %; Neutrophils # (A) 3.3 k/uL (1.3-7.7); Neutrophils % (A) 43 %; Platelet Count 303 k/uL (150-450); RBC 4.88 m/uL (3.80-5.40); RDW 12.5 % (11.5-15.5); WBC 7.6 k/uL (3.8-10.6)
--- NOTE | 2018-05-21 20:34 | XR ---
EXAMINATION TYPE: XR chest 2V DATE OF EXAM: 05/21/2018 COMPARISON: 05/10/2018 HISTORY: Syncope TECHNIQUE: Frontal and lateral views of the chest are obtained. FINDINGS: There is no heart failure nor confluent pneumonic infiltrate. Thoracic aorta is atheromato us. There are chest leads. Costophrenic angles are clear. IMPRESSION: No active cardiopulmonary disease. No change.
[2018-05-21 20:35] LABS: Creatine Kinase 85 U/L (30-135)
[2018-05-21 20:37] LABS: Albumin 4.1 g/dL (3.5-5.0); Calcium 9.4 mg/dL (8.4-10.2); Potassium 4.2 mmol/L (3.5-5.1); Total Bilirubin 0.4 mg/dL (0.2-1.3); Total Protein 6.5 g/dL (6.3-8.2)
[2018-05-21 20:43] LABS: Prothrombin Time 9.9 sec (9.0-12.0)
[2018-05-21 20:48] LABS: Creatine Kinase MB 1.1 ng/mL (0.0-2.4); Troponin I <0.012 ng/mL (0.000-0.034)
--- NOTE | 2018-05-21 20:54 | CT ---
EXAMINATION TYPE: CT brain wo con DATE OF EXAM: 05/21/2018 COMPARISON: 05/10/2018 HISTORY: Syncopal episode. CT DLP: 822.6 mGycm Automated exposure control for dose reduction was used. FINDINGS: There is cerebral cortical atrophy. There is no mass effect nor midline shift. There is no sign of in tracranial hemorrhage. There is patchy hypodensity in the periventricular white matter. The calvarium is intact. There is atheromatous change in the intracranial internal carotid arteries. IMPRESSION: CEREBRAL ATROPHY AND CHRONIC SMALL VESSEL ISCHEMIA. NO ACUTE INTRACRANIAL ABNORMALITY. NO CHANGE.
[2018-05-21 20:59] LABS: Partial Thromboplastin Time 20.7 sec (22.0-30.0)
[2018-05-21 21:24] LABS: Appearance,Urine Clear (Clear); Bacteria,Urine Rare /hpf; Bilirubin,Urine Negative (Negative); Blood,Urine Negative (Negative); Color,Urine Yellow; Glucose,Urine (UA) Negative (Negative); Hyaline Casts,Urine 1 /lpf (0-2); Ketones,Urine Negative (Negative); Leukocyte Esterase,Urine Trace (Negative); Mucus,Urine Rare /hpf; Nitrite,Urine Negative (Negative); Protein,Urine Negative (Negative); RBC,Urine <1 /hpf (0-5); Specific Gravity,Urine 1.014 (1.001-1.035); Urobilinogen,Urine <2.0 mg/dL (<2.0); WBC,Urine 2 /hpf (0-5)
[2018-05-21 22:01] VITALS: BP 160/62; PULSE 77; RESP 16
== END 2018-05-21 22:42 | disposition home or self-care (01) ==
LOC: EC 19:22
DX: R55 Syncope and collapse (principal); R41.82 Altered mental status, unspecified; E03.9 Hypothyroidism, unspecified; Z90.49 Acquired absence of other specified parts of digestive tract; Z98.890 Other specified postprocedural states; Z79.899 Other long term (current) drug therapy; Z88.0 Allergy status to penicillin; Z88.1 Allergy status to other antibiotic agents
CPT/HCPCS: 36415; 70450; 71046; 80053; 81001; 82550; 82553; 84484; 85025; 85610; 85730; 93005; 99285

== ENCOUNTER 2018-05-30 22:17 | Emergency (ER) | payer MEDICARE ==
[2018-05-30 23:37] LABS: Basophils # (A) 0.1 k/uL (0-0.2); Basophils % (A) 1 %; Eosinophils # (A) 0.2 k/uL (0-0.7); Eosinophils % (A) 3 %; HCT 41.7 % (34.0-46.0); HGB 13.9 gm/dL (11.4-16.0); Lymphocytes # (A) 2.1 k/uL (1.0-4.8); Lymphocytes % (A) 24 %; MCHC 33.5 g/dL (31.0-37.0); MCV 89.7 fL (80.0-100.0); Mean Platelet Volume 6.8; Monocytes # (A) 0.7 k/uL (0-1.0); Monocytes % (A) 7 %; Neutrophils # (A) 5.7 k/uL (1.3-7.7); Neutrophils % (A) 64 %; Platelet Count 296 k/uL (150-450); RBC 4.65 m/uL (3.80-5.40); RDW 12.5 % (11.5-15.5)
[2018-05-30 23:43] LABS: Calcium 9.2 mg/dL (8.4-10.2); Potassium 4.7 mmol/L (3.5-5.1); Total Bilirubin 0.5 mg/dL (0.2-1.3); Total Protein 6.5 g/dL (6.3-8.2)
--- NOTE | 2018-05-30 23:45 | ED ---
Syncope HPI - General Chief Complaint: Syncope Stated Complaint: Syncope Time Seen by Provider: 05/30/18 22:52 Source: patient, EMS Mode of arrival: EMS Limitations: altered mental status (Patient appears to have severe underlying dementia.) - History of Present Illness Initial Comments: This patient is an 87-year-old woman ought to be evaluated after she reportedly had a syncopal episode. The patient lives in an assisted living facility. History was reported to nursing staff and then to me. The patient is not able to give any history as it does appear she has some underlying dementia. The patient is without complaints. She states she does not believe she was injured. She has no pain or any dyspnea. She did request something to eat and some coffee. MD Complaint: loss of consciousness -: unknown - Related Data Home Medications Medication Instructions Recorded Confirmed Acetaminophen Tab [Tylenol Tab] 650 mg PO Q4H PRN 05/21/18 05/21/18 Atorvastatin [Lipitor] 20 mg PO HS 05/21/18 05/21/18 Cetirizine HCl 10 mg PO HS 05/21/18 05/21/18 Ergocalciferol (Vitamin D2) 50,000 unit PO Q7D 05/21/18 05/21/18 [Vitamin D2] Escitalopram [Lexapro] 20 mg PO DAILY 05/21/18 05/21/18 Levothyroxine Sodium [Synthroid] 75 mcg PO DAILY 05/21/18 05/21/18 Memantine [Namenda] 10 mg PO DAILY 05/21/18 05/21/18 busPIRone HCl [Buspar] 10 mg PO TID 05/21/18 05/21/18 Allergies Allergy/AdvReac Type Severity Reaction Status Date / Time erythromycin base Allergy Unknown Verified 05/30/18 22:44 Penicillins Allergy Unknown Verified 05/30/18 22:44 Review of Systems ROS Statement: Those systems with pertinent positive or pertinent negative responses have been documented in the HPI. ROS Other: All systems not noted in ROS Statement are negative. Limitations: ROS unobtainable due to patients medical condition (Patient appears to have underlying dementia area) Respiratory: Denies: cough, dyspnea Cardiovascular: Denies: chest pain Gastrointestinal: Denies: abdominal pain, vomiting Musculoskeletal: Denies: back pain Neurological: Denies: headache, weakness Past Medical History Past Medical History: Thyroid Disorder Additional Past Medical History / Comment(s): Sister and Cierra WEISS states that pt does not currently have a PCP and has not gone to the doctors much the past several years. Other hx: Severe memory impairment, hypothyroid, gait dysfunction, sinus problems. History of Any Multi-Drug Resistant Organisms: None Reported Past Surgical History: Adenoidectomy, Appendectomy, Tonsillectomy Additional Past Surgical History / Comment(s): Bilateral cataract removal with lens implants. Past Anesthesia/Blood Transfusion Reactions: No Reported Reaction Past Psychological History: No Psychological Hx Reported Smoking Status: Never smoker Past Alcohol Use History: None Reported Past Drug Use History: None Reported - Past Family History Father Family Medical History: Myocardial Infarction ([place]) Additional Family Medical History / Comment(s): Father of a [place] at the age of 80 yrs. Mother Family Medical History: Dementia Brother(s) Family Medical History: Dementia General Exam Limitations: no limitations General appearance: alert, in no apparent distress Head exam: Present: atraumatic, normocephalic, normal inspection Eye exam: Present: normal appearance, PERRL, EOMI. Absent: scleral icterus, conjunctival injection ENT exam: Present: normal oropharynx Neck exam: Present: normal inspection, full ROM. Absent: tenderness Respiratory exam: Present: normal lung sounds bilaterally. Absent: respiratory distress, wheezes, rales, rhonchi, stridor, chest wall tenderness Cardiovascular Exam: Present: regular rate, normal rhythm, normal heart sounds. Absent: systolic murmur, diastolic murmur, rubs, gallop GI/Abdominal exam: Present: soft. Absent: distended, tenderness, guarding, rebound, rigid Extremities exam: Present: normal inspection, normal capillary refill. Absent: pedal edema, calf tenderness Back exam: Present: normal inspection. Absent: CVA tenderness (R), CVA tenderness (L) Neurological exam: Present: alert, CN II-XII intact. Absent: oriented X3 ( Patient is oriented only to person.), motor sensory deficit Skin exam: Present: warm, dry, intact, normal color. Absent: rash Course Vital Signs 05/30/18 22:38 Temperature 97.5 F L Pulse Rate 70 Respiratory 18 Rate Blood Pressure 148/65 O2 Sat by Pulse 96 Oximetry EKG Findings - EKG Results: EKG: interpreted by ERMD, sinus rhythm (Rate 76 bpm), normal axis, normal QRS, normal ST/T - Blocks, Anderson, Hypertrophy, ST Abn: Repolarization changes or abnormalities: Q-T interval prolongation Medical Decision Making - Medical Decision Making Patient is an 87-year-old woman initially thought to be here for a full syncopal episode, was workup is unremarkable. Nursing staff had phoned and discussed with the patient's sister. It appears that the patient had been brushing her teeth and then had an episode in which she was shaking but did not actually have syncope or a fall. In discussions with patient's family is appears that she is at her baseline. The patient was observed ambulating and she did eat and drink here. She is without complaint and does want to go home. We do have paperwork that accompanied the patient stating that she is no code. It does not appear that any further intervention is needed at this point. - Lab Data Result diagrams: 05/30/18 23:21 05/30/18 23:21 Lab Results 05/30/18 05/30/18 05/30/18 Range/Units 23:21 23:21 23:21 WBC 9.0 (3.8-10.6) k/uL RBC 4.65 (3.80-5.40) m/uL Hgb 13.9 (11.4-16.0) gm/dL Hct 41.7 (34.0-46.0) % MCV 89.7 (80.0-100.0) fL MCH 30.0 (25.0-35.0) pg MCHC 33.5 (31.0-37.0) g/dL RDW 12.5 (11.5-15.5) % Plt Count 296 (150-450) k/uL Neutrophils % 64 % Lymphocytes % 24 % Monocytes % 7 % Eosinophils % 3 % Basophils % 1 % Neutrophils # 5.7 (1.3-7.7) k/uL Lymphocytes # 2.1 (1.0-4.8) k/uL Monocytes # 0.7 (0-1.0) k/uL Eosinophils # 0.2 (0-0.7) k/uL Basophils # 0.1 (0-0.2) k/uL PT (9.0-12.0) sec INR (<1.2) APTT (22.0-30.0) sec Sodium 138 (137-145) mmol/L Potassium 4.7 (3.5-5.1) mmol/L Chloride 101 (98-107) mmol/L Carbon Dioxide 30 (22-30) mmol/L Anion Gap 7 mmol/L BUN 17 (7-17) mg/dL Creatinine 0.90 (0.52-1.04) mg/dL Est GFR (CKD-EPI)AfAm 68 (>60 ml/min/1.73 sqM) Est GFR (CKD-EPI)NonAf 59 (>60 ml/min/1.73 sqM) Glucose 130 H (74-99) mg/dL Calcium 9.2 (8.4-10.2) mg/dL Total Bilirubin 0.5 (0.2-1.3) mg/dL AST 29 (14-36) U/L ALT 24 (9-52) U/L Alkaline Phosphatase 95 (38-126) U/L Total Creatine Kinase 72 (30-135) U/L CK-MB (CK-2) 1.3 (0.0-2.4) ng/mL CK-MB (CK-2) Rel Index 1.8 Troponin I <0.012 (0.000-0.034) ng/mL Total Protein 6.5 (6.3-8.2) g/dL Albumin 4.0 (3.5-5.0) g/dL 05/30/ Range/Units 23:21 WBC (3.8-10.6) k/uL RBC (3.80-5.40) m/uL Hgb (11.4-16.0) gm/dL Hct (34.0-46.0) % MCV (80.0-100.0) fL MCH (25.0-35.0) pg MCHC (31.0-37.0) g/dL RDW (11.5-15.5) % Plt Count (150-450) k/uL Neutrophils % % Lymphocytes % % Monocytes % % Eosinophils % % Basophils % % Neutrophils # (1.3-7.7) k/uL Lymphocytes # (1.0-4.8) k/uL Monocytes # (0-1.0) k/uL Eosinophils # (0-0.7) k/uL Basophils # (0-0.2) k/uL PT 10.2 (9.0-12.0) sec INR 1.0 (<1.2) APTT 22.0 (22.0-30.0) sec Sodium (137-145) mmol/L Potassium (3.5-5.1) mmol/L Chloride (98-107) mmol/L Carbon Dioxide (22-30) mmol/L Anion Gap mmol/L BUN (7-17) mg/dL Creatinine (0.52-1.04) mg/dL Est GFR (CKD-EPI)AfAm (>60 ml/min/1.73 sqM) Est GFR (CKD-EPI)NonAf (>60 ml/min/1.73 sqM) Glucose (74-99) mg/dL Calcium (8.4-10.2) mg/dL Total Bilirubin (0.2-1.3) mg/dL AST (14-36) U/L ALT (9-52) U/L Alkaline Phosphatase (38-126) U/L Total Creatine Kinase (30-135) U/L CK-MB (CK-2) (0.0-2.4) ng/mL CK-MB (CK-2) Rel Index Troponin I (0.000-0.034) ng/mL Total Protein (6.3-8.2) g/dL Albumin (3.5-5.0) g/dL Disposition Clinical Impression: Dementia, Syncope, near Disposition: HOME SELF-CARE Condition: Fair Instructions: Weakness (ED) Is patient prescribed a controlled substance at d/c from ED?: No Referrals: None,Stated [Primary Care Provider] - 1-2 days Breanne Chatman MD [REFERRING] - 1-2 days
[2018-05-30 23:48] LABS: Creatine Kinase 72 U/L (30-135)
[2018-05-30 23:49] LABS: Prothrombin Time 10.2 sec (9.0-12.0)
--- NOTE | 2018-05-30 23:59 | XR ---
EXAMINATION TYPE: XR chest 1V portable DATE OF EXAM: 05/30/2018 COMPARISON: 05/21/2018 HISTORY: Syncope TECHNIQUE: Single frontal view of the chest is obtained. FINDINGS: There is no heart failure nor confluent pneumonic infiltrate. Thoracic aorta is atheromato us. There is no pleural effusion. There are calcified pulmonary granulomata. IMPRESSION: No active cardiopulmonary disease. No change.
--- NOTE | 2018-05-31 | CT ---
EXAMINATION TYPE: CT brain wo con DATE OF EXAM: 05/30/2018 COMPARISON: 05/21/2018 HISTORY: syncope CT DLP: 943.80 mGycm Automated exposure control for dose reduction was used. FINDINGS: There is cerebral cortical atrophy. There is patchy hypodensity in the periventricular white matter. There is no mass effect nor midline shift. There is no sign of intracranial hemorrhage. The calvarium is intact. IMPRESSION: CEREBRAL ATROPHY AND CHRONIC SMALL VESSEL ISCHEMIA. NO ACUTE INTRACRANIAL ABNORMALITY. NO CHANGE.
[2018-05-31 00:01] LABS: Creatine Kinase MB 1.3 ng/mL (0.0-2.4); Troponin I <0.012 ng/mL (0.000-0.034)
[2018-05-31 01:39] VITALS: BP 127/58; PULSE 92; RESP 16; TEMP 97
== END 2018-05-31 02:47 | disposition home or self-care (01) ==
LOC: EC 22:17
DX: F03.90 Unspecified dementia, unspecified severity, without behavioral disturbance, psychotic disturbance, mood disturbance, and anxiety (principal); R55 Syncope and collapse; E03.9 Hypothyroidism, unspecified; Z79.899 Other long term (current) drug therapy; Z88.0 Allergy status to penicillin; Z88.1 Allergy status to other antibiotic agents; Z87.898 Personal history of other specified conditions; Z81.8 Family history of other mental and behavioral disorders
CPT/HCPCS: 36415; 70450; 71045; 80053; 82550; 82553; 84484; 85025; 85610; 85730; 93005; 99285

== ENCOUNTER 2018-06-09 18:43 | Emergency (ER) | payer MEDICARE ==
[2018-06-09 19:00] VITALS: TEMP 97
[2018-06-09 19:28] VITALS: BP 190/86; RESP 16
[2018-06-09] MEDS ORDERED: SODIUM CHLORIDE 0.9% 1,000 ML IV ONE (19:28)
--- NOTE | 2018-06-09 19:31 | ED ---
Fall HPI - General Chief Complaint: Fall Stated Complaint: Fall-back injury Time Seen by Provider: 06/09/18 19:02 Source: patient, EMS, RN notes reviewed, old records reviewed Mode of arrival: EMS - History of Present Illness Initial Comments: Patient is an 87-year-old female presents emergency department today with chief complaint of fall. She reports that she fell on the ground and tripped. She reports she's having lower back pain. Patient states she was able to ambulate after the fall. She is unsure if she her head. She has a history of dementia. Patient does have a confuse conversation. She reports that she was with her mother. Patient states that she has no pain down her legs or arms. She denies any chest pain or abdominal pain. - Related Data Home Medications Medication Instructions Recorded Confirmed Acetaminophen Tab [Tylenol Tab] 650 mg PO Q4H PRN 05/21/18 05/21/18 Atorvastatin [Lipitor] 20 mg PO HS 05/21/18 05/21/18 Cetirizine HCl 10 mg PO HS 05/21/18 05/21/18 Ergocalciferol (Vitamin D2) 50,000 unit PO Q7D 05/21/18 05/21/18 [Vitamin D2] Escitalopram [Lexapro] 20 mg PO DAILY 05/21/18 05/21/18 Levothyroxine Sodium [Synthroid] 75 mcg PO DAILY 05/21/18 05/21/18 Memantine [Namenda] 10 mg PO DAILY 05/21/18 05/21/18 busPIRone HCl [Buspar] 10 mg PO TID 05/21/18 05/21/18 Allergies Allergy/AdvReac Type Severity Reaction Status Date / Time erythromycin base Allergy Unknown Verified 05/30/18 22:44 Penicillins Allergy Unknown Verified 05/30/18 22:44 Review of Systems ROS Statement: Those systems with pertinent positive or pertinent negative responses have been documented in the HPI. ROS Other: All systems not noted in ROS Statement are negative. Past Medical History Past Medical History: Thyroid Disorder Additional Past Medical History / Comment(s): Sister and Cierra WEISS states that pt does not currently have a PCP and has not gone to the doctors much the past several years. Other hx: Severe memory impairment, hypothyroid, gait dysfunction, sinus problems. History of Any Multi-Drug Resistant Organisms: None Reported Past Surgical History: Adenoidectomy, Appendectomy, Tonsillectomy Additional Past Surgical History / Comment(s): Bilateral cataract removal with lens implants. Past Anesthesia/Blood Transfusion Reactions: No Reported Reaction Past Psychological History: No Psychological Hx Reported Smoking Status: Never smoker Past Alcohol Use History: None Reported Past Drug Use History: None Reported - Past Family History Father Family Medical History: Myocardial Infarction ([place]) Additional Family Medical History / Comment(s): Father of a [place] at the age of 80 yrs. Mother Family Medical History: Dementia Brother(s) Family Medical History: Dementia General Exam - General Exam Comments Initial Comments: this Patient is an 87-year-old female with history of dementia. She is alert and oriented to person and place. Limitations: altered mental status Head exam: Present: atraumatic, normocephalic, normal inspection Eye exam: Present: normal appearance, PERRL, EOMI. Absent: scleral icterus, conjunctival injection, periorbital swelling ENT exam: Present: normal exam, mucous membranes moist Neck exam: Present: normal inspection. Absent: tenderness, meningismus, lymphadenopathy Respiratory exam: Present: normal lung sounds bilaterally. Absent: respiratory distress, wheezes, rales, rhonchi, stridor Cardiovascular Exam: Present: regular rate, normal rhythm, normal heart sounds. Absent: systolic murmur, diastolic murmur, rubs, gallop, clicks GI/Abdominal exam: Present: soft, normal bowel sounds. Absent: distended, tenderness, guarding, rebound, rigid Back exam: Present: normal inspection, tenderness (Patient has lumbar spinal tenderness and tenderness over the pelvis and ribs.) Neurological exam: Present: alert, oriented X3, CN II-XII intact Psychiatric exam: Present: normal affect, normal mood Skin exam: Present: warm, dry, intact, normal color. Absent: rash Course Vital Signs 06/09/18 06/09/18 06/09/18 18:46 19:28 21:46 Temperature 97.0 F L Pulse Rate 76 75 72 Respiratory 18 16 16 Rate Blood Pressure 197/95 190/86 O2 Sat by Pulse 100 95 95 Oximetry Medical Decision Making - Medical Decision Making 87-year-old female presents emergency department today with trip and fall. She reports she fell on her lower back. She states it is sore. Patient's lab work and EKG are unremarkable emergency department. CT brain and C-spine was completed and negative for any acute issue. X-rays of the pelvis and lower scar completed and negative for any changes. Patient is able to ambulate without significant difficulty. IM Toradol and Norflex. At this time Patient will be discharged home back to her assisted living facility. She does have significant dementia but this is the patient's baseline. - Lab Data Result diagrams: 06/09/18 19:38 06/09/18 19:38 Lab Results 06/09/18 06/09/18 06/09/18 Range/Units 19:38 19:38 19:38 WBC 5.7 (3.8-10.6) k/uL RBC 4.87 (3.80-5.40) m/uL Hgb 14.6 (11.4-16.0) gm/dL Hct 44.0 (34.0-46.0) % MCV 90.4 (80.0-100.0) fL MCH 30.0 (25.0-35.0) pg MCHC 33.2 (31.0-37.0) g/dL RDW 12.6 (11.5-15.5) % Plt Count 255 (150-450) k/uL Neutrophils % 51 % Lymphocytes % 32 % Monocytes % 9 % Eosinophils % 4 % Basophils % 1 % Neutrophils # 2.9 (1.3-7.7) k/uL Lymphocytes # 1.9 (1.0-4.8) k/uL Monocytes # 0.5 (0-1.0) k/uL Eosinophils # 0.2 (0-0.7) k/uL Basophils # 0.1 (0-0.2) k/uL PT (9.0-12.0) sec INR (<1.2) APTT (22.0-30.0) sec Sodium 140 (137-145) mmol/L Potassium 4.4 (3.5-5.1) mmol/L Chloride 102 (98-107) mmol/L Carbon Dioxide 28 (22-30) mmol/L Anion Gap 10 mmol/L BUN 16 (7-17) mg/dL Creatinine 0.90 (0.52-1.04) mg/dL Est GFR (CKD-EPI)AfAm 68 (>60 ml/min/1.73 sqM) Est GFR (CKD-EPI)NonAf 59 (>60 ml/min/1.73 sqM) Glucose 153 H (74-99) mg/dL POC Glucose (mg/dL) (75-99) mg/dL POC Glu [facility] ID Calcium 9.2 (8.4-10.2) mg/dL Total Bilirubin 0.4 (0.2-1.3) mg/dL AST 27 (14-36) U/L ALT 30 (9-52) U/L Alkaline Phosphatase 92 (38-126) U/L Total Creatine Kinase 61 (30-135) U/L CK-MB (CK-2) 1.6 (0.0-2.4) ng/mL CK-MB (CK-2) Rel Index 2.6 Troponin I <0.012 (0.000-0.034) ng/mL Total Protein 6.4 (6.3-8.2) g/dL Albumin 3.8 (3.5-5.0) g/dL Urine Color Urine Appearance (Clear) Urine pH (5.0-8.0) Ur Specific [place] (1.001-1.035) Urine Protein (Negative) Urine Glucose (UA) (Negative) Urine Ketones (Negative) Urine Blood (Negative) Urine Nitrite (Negative) Urine Bilirubin (Negative) Urine Urobilinogen (<2.0) mg/dL Ur Leukocyte Esterase (Negative) 06/09/18 06/09/18 06/09/18 Range/Units 19:38 20:13 20:40 WBC (3.8-10.6) k/uL RBC (3.80-5.40) m/uL Hgb (11.4-16.0) gm/dL Hct (34.0-46.0) % MCV (80.0-100.0) fL MCH (25.0-35.0) pg MCHC (31.0-37.0) g/dL RDW (11.5-15.5) % Plt Count (150-450) k/uL Neutrophils % % Lymphocytes % % Monocytes % % Eosinophils % % Basophils % % Neutrophils # (1.3-7.7) k/uL Lymphocytes # (1.0-4.8) k/uL Monocytes # (0-1.0) k/uL Eosinophils # (0-0.7) k/uL Basophils # (0-0.2) k/uL PT 10.2 (9.0-12.0) sec INR 1.0 (<1.2) APTT 21.7 L (22.0-30.0) sec Sodium (137-145) mmol/L Potassium (3.5-5.1) mmol/L Chloride (98-107) mmol/L Carbon Dioxide (22-30) mmol/L Anion Gap mmol/L BUN (7-17) mg/dL Creatinine (0.52-1.04) mg/dL Est GFR (CKD-EPI)AfAm (>60 ml/min/1.73 sqM) Est GFR (CKD-EPI)NonAf (>60 ml/min/1.73 sqM) Glucose (74-99) mg/dL POC Glucose (mg/dL) 130 H (75-99) mg/dL POC Glu [facility] ID [place] Calcium (8.4-10.2) mg/dL Total Bilirubin (0.2-1.3) mg/dL AST (14-36) U/L ALT (9-52) U/L Alkaline Phosphatase (38-126) U/L Total Creatine Kinase (30-135) U/L CK-MB (CK-2) (0.0-2.4) ng/mL CK-MB (CK-2) Rel Index Troponin I (0.000-0.034) ng/mL Total Protein (6.3-8.2) g/dL Albumin (3.5-5.0) g/dL Urine Color Yellow Urine Appearance Clear (Clear) Urine pH 5.5 (5.0-8.0) Ur Specific [place] 1.014 (1.001-1.035) Urine Protein Negative (Negative) Urine Glucose (UA) Negative (Negative) Urine Ketones Trace H (Negative) Urine Blood Negative (Negative) Urine Nitrite Negative (Negative) Urine Bilirubin Negative (Negative) Urine Urobilinogen <2.0 (<2.0) mg/dL Ur Leukocyte Esterase Negative (Negative) 06/09/18 20:49 EKG shows sinus rhythm with nonspecific ST and T-wave abnormality. Ventricular rate of 74 bpm. Intervals 180 ms. QRS duration is 90 ms. QT QTc is 438/486 ms. - Radiology Data Radiology results: report reviewed CT brain and C-spine is negative for any acute disease.Negative pelvis x-ray. Negative lumbar spine exam. Erythematous aorta noted. All pulmonary fibrosis. No heart failure. No active lung disease. No changes. Disposition Clinical Impression: Fall, Lumbar back pain Disposition: HOME SELF-CARE Condition: Good Instructions: Fall Prevention for Older Adults (ED) Additional Instructions: Patient has a Motrin and Tylenol for pain. Apply ice and heat over the areas that are sore. Return to emergency department if any alarming signs or symptoms occur. Is patient prescribed a controlled substance at d/c from ED?: No Referrals: None,Stated [Primary Care Provider] - 1-2 days Time of Disposition: 22:47
[2018-06-09 19:52] LABS: Basophils # (A) 0.1 k/uL (0-0.2); Basophils % (A) 1 %; Eosinophils # (A) 0.2 k/uL (0-0.7); Eosinophils % (A) 4 %; HGB 14.6 gm/dL (11.4-16.0); Lymphocytes # (A) 1.9 k/uL (1.0-4.8); Lymphocytes % (A) 32 %; MCHC 33.2 g/dL (31.0-37.0); MCV 90.4 fL (80.0-100.0); Mean Platelet Volume 6.5; Monocytes # (A) 0.5 k/uL (0-1.0); Monocytes % (A) 9 %; Neutrophils # (A) 2.9 k/uL (1.3-7.7); Neutrophils % (A) 51 %; Platelet Count 255 k/uL (150-450); RBC 4.87 m/uL (3.80-5.40); RDW 12.6 % (11.5-15.5); WBC 5.7 k/uL (3.8-10.6)
[2018-06-09 20:09] LABS: Albumin 3.8 g/dL (3.5-5.0); Calcium 9.2 mg/dL (8.4-10.2); Creatine Kinase 61 U/L (30-135); Potassium 4.4 mmol/L (3.5-5.1); Total Bilirubin 0.4 mg/dL (0.2-1.3); Total Protein 6.4 g/dL (6.3-8.2)
[2018-06-09 20:10] LABS: Prothrombin Time 10.2 sec (9.0-12.0)
[2018-06-09 20:12] LABS: Partial Thromboplastin Time 21.7 sec (22.0-30.0)
[2018-06-09 20:21] LABS: Creatine Kinase MB 1.6 ng/mL (0.0-2.4); Troponin I <0.012 ng/mL (0.000-0.034)
--- NOTE | 2018-06-09 20:31 | CT ---
EXAMINATION TYPE: CT brain yanira starr DATE OF EXAM: 06/09/2018 COMPARISON: CT brain 05/30/2018 HISTORY: Altered mental status and fall. CT DLP: 1371 mGycm Automated exposure control for dose reduction was used. TECHNIQUE: CT scan of the head and cervical spine are performed without contrast. FINDINGS: There is cerebral cortical atrophy. There is moderate patchy hypodensity in the periventr icular white matter. There is no mass effect nor midline shift. I see no definite intracranial hemorr abelardo. There is high attenuation over the frontal lobe convexities that is probably artifactual. The cervical vertebra have normal alignment. There is narrowing of disc spaces from C3 to C7 with spu rring of the endplates. Posterior elements are intact. Skull base is intact. Facet joints appear inta ct. There is no evidence of a compression fracture. IMPRESSION: Spondylotic changes in the cervical spine. No fracture. Cerebral atrophy and chronic small vessel ischemia. No acute intracranial abnormality. Brain appears unchanged compared to old exam.
[2018-06-09 20:43] LABS: Glucose,Whole Blood 130 mg/dL (75-99)
[2018-06-09 21:00] LABS: Appearance,Urine Clear (Clear); Bilirubin,Urine Negative (Negative); Blood,Urine Negative (Negative); Color,Urine Yellow; Glucose,Urine (UA) Negative (Negative); Ketones,Urine Trace (Negative); Leukocyte Esterase,Urine Negative (Negative); Nitrite,Urine Negative (Negative); PH, Urine 5.5 (5.0-8.0); Protein,Urine Negative (Negative); Specific Gravity,Urine 1.014 (1.001-1.035); Urobilinogen,Urine <2.0 mg/dL (<2.0)
[2018-06-09 21:47] VITALS: PULSE 72
--- NOTE | 2018-06-09 21:53 | XR ---
EXAMINATION TYPE: XR lumbar spine 2 or 3V DATE OF EXAM: 06/09/2018 COMPARISON: NONE HISTORY: Back pain TECHNIQUE: 3 views FINDINGS: Lumbar vertebra have normal alignment. Disc spaces are fairly normal. There is no compressi on fracture. Sacroiliac joints appear intact. IMPRESSION: Negative lumbar spine exam. Atheromatous aorta noted.
--- NOTE | 2018-06-09 21:54 | XR ---
EXAMINATION TYPE: XR pelvis AP view DATE OF EXAM: 06/09/2018 COMPARISON: NONE HISTORY: Pain TECHNIQUE: 2 views FINDINGS: The pelvic ring is intact. Proximal femurs and hip joints appear intact. Sacroiliac joints are intact. IMPRESSION: Negative pelvis x-ray exam.
--- NOTE | 2018-06-09 21:55 | XR ---
EXAMINATION TYPE: XR chest 1V DATE OF EXAM: 06/09/2018 COMPARISON: 05/30/2018 HISTORY: Chest pain TECHNIQUE: Single frontal view of the chest is obtained. FINDINGS: There is slight coarsening of interstitial markings. There is no heart failure. Costophren ic angles are clear. There are chest leads. Thoracic aorta is atheromatous. IMPRESSION: Mild pulmonary fibrosis. No heart failure. No acute lung disease. No change.
[2018-06-09] MEDS ORDERED: ORPHENADRINE 30 MG/ML 2 ML VIAL IVP STA (22:35)
== END 2018-06-09 23:36 | disposition home or self-care (01) ==
LOC: EC 18:43
DX: M54.5 Low back pain (principal); J84.10 Pulmonary fibrosis, unspecified; I77.89 Other specified disorders of arteries and arterioles; R94.31 Abnormal electrocardiogram [ECG] [EKG]; F03.90 Unspecified dementia, unspecified severity, without behavioral disturbance, psychotic disturbance, mood disturbance, and anxiety; E03.9 Hypothyroidism, unspecified; Z79.899 Other long term (current) drug therapy; Z88.0 Allergy status to penicillin; Z88.1 Allergy status to other antibiotic agents; Z87.898 Personal history of other specified conditions; Z81.8 Family history of other mental and behavioral disorders; W01.0XXA Fall on same level from slipping, tripping and stumbling without subsequent striking against object, initial encounter; Y92.009 Unspecified place in unspecified non-institutional (private) residence as the place of occurrence of the external cause
CPT/HCPCS: 99285; 96374; 96361; 36415; 93005; 80053; 82550; 82553; 84484; 85025; 85610; 85730; 81003; 72100; 72170; 71045; 72125; 70450; J2360

== ENCOUNTER 2018-06-17 18:35 | Emergency (ER) | payer MEDICARE ==
[2018-06-17 18:57] VITALS: RESP 20
[2018-06-17] MEDS ORDERED: SODIUM CHLORIDE 0.9% 500 ML IV ONE (19:15)
[2018-06-17] MEDS ORDERED: ACETAMINOPHEN TAB 325 MG TAB PO STA (19:15)
--- NOTE | 2018-06-17 19:24 | ED ---
Fall HPI <Ike Nathan - Last Filed: 06/17/18 21:46> - General Source: patient Mode of arrival: EMS <Radha Rivera - Last Filed: 06/17/18 22:39> - General Chief Complaint: Fall Stated Complaint: Fall Time Seen by Provider: 06/17/18 18:50 - History of Present Illness Initial Comments: 87-year-old female patient with past medical history significant for dementia presents to the emergency department for the second time this week for evaluation after expressing a fall. Patient states that she was going out the door and asked initially was on the ground. Patient does not remember tripping. States that she does not remember the actual fall. Patient is a poor historian, I did call and speak to the aide at the [facility] where she resides, states that the patient seemed to have tripped. States that she did start yelling immediately after the fall and did not pass out. Patient does report hitting her head. She states she is having some neck pain and some increased low back pain. Patient is also reporting bilateral knee pain. She denies any numbness or tingling to her extremities. She denies any current headache, blurred vision, double vision, or dizziness. Denies any nausea or vomiting. Patient denies any chest pain or shortness of breath. (Radha Rivera) - Related Data Home Medications Medication Instructions Recorded Confirmed Acetaminophen Tab [Tylenol Tab] 650 mg PO Q4H PRN 05/21/18 06/17/18 Atorvastatin [Lipitor] 20 mg PO HS 05/21/18 06/17/18 Ergocalciferol (Vitamin D2) 50,000 unit PO MEZA 05/21/18 06/17/18 [Vitamin D2] Escitalopram [Lexapro] 20 mg PO DAILY 05/21/18 06/17/18 Levothyroxine Sodium [Synthroid] 75 mcg PO DAILY 05/21/18 06/17/18 Memantine [Namenda] 10 mg PO BID 05/21/18 06/17/18 busPIRone HCl [Buspar] 10 mg PO TID 05/21/18 06/17/18 Divalproex ER [Depakote ER] 500 mg PO DAILY 06/17/18 06/17/18 OLANZapine [ZyPREXA] 2.5 mg PO TID 06/17/18 06/17/18 QUEtiapine [SEROquel] 25 mg PO HS 06/17/18 06/17/18 Allergies Allergy/AdvReac Type Severity Reaction Status Date / Time erythromycin base Allergy Unknown Verified 06/17/18 20:04 Penicillins Allergy Unknown Verified 06/17/18 20:04 Review of Systems ROS Other: All systems not noted in ROS Statement are negative. <Ike Nathan - Last Filed: 06/17/18 21:46> ROS Other: All systems not noted in ROS Statement are negative. <Radha Rivera - Last Filed: 06/17/18 22:39> ROS Statement: Those systems with pertinent positive or pertinent negative responses have been documented in the HPI. Past Medical History Past Medical History: Thyroid Disorder Additional Past Medical History / Comment(s): Sister and Cierra WEISS states that pt does not currently have a PCP and has not gone to the doctors much the past several years. Other hx: Severe memory impairment, hypothyroid, gait dysfunction, sinus problems. History of Any Multi-Drug Resistant Organisms: None Reported Past Surgical History: Adenoidectomy, Appendectomy, Tonsillectomy Additional Past Surgical History / Comment(s): Bilateral cataract removal with lens implants. Past Anesthesia/Blood Transfusion Reactions: No Reported Reaction Past Psychological History: No Psychological Hx Reported Smoking Status: Never smoker Past Alcohol Use History: None Reported Past Drug Use History: None Reported - Past Family History Father Family Medical History: Myocardial Infarction ([place]) Additional Family Medical History / Comment(s): Father of a [place] at the age of 80 yrs. Mother Family Medical History: Dementia Brother(s) Family Medical History: Dementia <Radha Rivera - Last Filed: 06/17/18 22:39> General Exam Limitations: altered mental status General appearance: alert, in no apparent distress, other (This is a well- developed, well-nourished elderly female patient in no acute distress. Vital signs upon presentation are temperature 98.3F, pulse 88, respirations 20, blood pressure 179/82, pulse ox 99% on room air.) Head exam: Present: other (Patient has bluish ecchymosis noted to the mid forehead.) Eye exam: Present: normal appearance, PERRL, EOMI. Absent: scleral icterus, conjunctival injection, nystagmus, periorbital swelling ENT exam: Present: normal exam, normal oropharynx, mucous membranes moist Neck exam: Present: normal inspection, tenderness (Lower cervical tenderness), other (No bony step-off or deformity noted to the midline palpation of the posterior cervical spine). Absent: meningismus, full ROM (C collar in place), lymphadenopathy Respiratory exam: Present: normal lung sounds bilaterally. Absent: respiratory distress, wheezes, rales, rhonchi, stridor Cardiovascular Exam: Present: regular rate, normal rhythm, normal heart sounds. Absent: systolic murmur, diastolic murmur, rubs, gallop, clicks GI/Abdominal exam: Present: soft, normal bowel sounds. Absent: distended, tenderness, guarding, rebound, rigid Extremities exam: Present: normal inspection, full ROM, tenderness (Bilateral anterior any tenderness.), normal capillary refill, other (Patient has nonpitting edema to bilateral ankles. Post tibial and pedal pulses are 2+ and equal bilaterally. Skin is pink, warm, and dry. Cap refills less than 3 seconds.). Absent: pedal edema, joint swelling, calf tenderness Back exam: Present: normal inspection, vertebral tenderness (Lumbosacral vertebral tenderness. No bony step-off or deformity noted to for midline palpation of the lumbar spine. No tenderness over the thoracic spine.) Neurological exam: Present: alert, CN II-XII intact. Absent: oriented X3 ( Oriented 1) Psychiatric exam: Present: normal affect, normal mood Skin exam: Present: warm, dry, intact, normal color. Absent: rash <Radha Rivera - Last Filed: 06/17/18 22:39> Vital Signs 06/17/18 06/17/18 06/17/18 18:53 21:00 21:51 Temperature 98.3 F 98.2 F Pulse Rate 88 88 81 Respiratory 20 20 20 Rate Blood Pressure 179/82 161/71 165/65 O2 Sat by Pulse 99 99 99 Oximetry Medical Decision Making <Ike Nathan - Last Filed: 06/17/18 21:46> - Radiology Data Radiology results: report reviewed, image reviewed <Radha Rivera - Last Filed: 06/17/18 22:39> - Medical Decision Making I saw this patient in conjunction with the physician automotive service assistant. I performed independent history and physical exam. Agree with case management. (Ike Nathan) 87-year-old female patient presented to the emergency department today for evaluation after experiencing a fall. Physical examination did reveal ecchymosis to the bilateral anterior knees. Patient has full range of motion of both knees and hips without significant pain or limitation. Patient did have some lumbosacral tenderness. Patient also had some lower cervical tenderness. CT brain and C-spine were obtained and were unremarkable. X-ray bilateral knees were negative for any acute osseous abnormalities. Lumbosacral x-ray was also normal. Patient is ambulatory in the department without difficulty. Patient is confused however this is her baseline given history of dementia. She'll be discharged back to [facility] assisted living where she resides. They're instructed to follow-up the family physician for recheck in 1-2 days. Return parameters discussed in detail. They verbalize understanding and agree with this plan. (Radha Rivera) - Radiology Data 5 views of the lumbosacral spine are obtained. 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 Impression by Dr. Rosmery Villagran shows no acute process. 3 views of the right knee and 3 views of left knee were obtained. Report was reviewed in its entirety. Impression by Dr. Rosmery Villagran shows x-ray knee completely bilateral, no acute process. CT brain and C-spine were obtained. Report was reviewed in its entirety. Impression by Dr. Rosmery Villagran shows no acute fracture or dislocation evident in the cervical spine. No acute intracranial hemorrhage, mass effect, or midline shift is seen. (Radha Rivera) Disposition <Ike Nathan - Last Filed: 06/17/18 21:46> Is patient prescribed a controlled substance at d/c from ED?: No Time of Disposition: 21:44 <Radha Rivera - Last Filed: 06/17/18 22:39> Clinical Impression: Head injury, Contusion, knee Narrative: Bilateral knees (Radha Rivera) Disposition: HOME SELF-CARE Condition: Good Instructions: Fall Prevention for Older Adults (ED), Head Injury (ED), Knee Pain (ED) Additional Instructions: Follow-up with the primary care physician for recheck in 1-2 days. Return here immediately for any new, worsening, or concerning symptoms. Referrals: None,Stated [Primary Care Provider] - 1-2 days
--- NOTE | 2018-06-17 20:40 | CT ---
EXAMINATION TYPE: CT brain yanira wo con DATE OF EXAM: 06/17/2018 COMPARISON: 06/09/2018 HISTORY: Fall today. Frontal injury. CT DLP: 1781.9 mGycm Automated exposure control for dose reduction was used. TECHNIQUE: CT scan of the head and cervical spine are performed without contrast. FINDINGS: There is no acute intracranial hemorrhage, mass effect, or midline shift identified. The ventricles and sulci are within normal limits in size. The globes are intact and the visualized sin uses are clear. Cervical spine is visualized in its entirety from C1 through upper thoracic levels and demonstrates s atisfactory alignment without evidence of acute fracture or dislocation. Prevertebral soft tissue ap pears within normal limits. The C1-C2 articulation is unremarkable. IMPRESSION: 1. There is no acute fracture or dislocation evident in the cervical spine. 2. No acute intracranial hemorrhage, mass effect, or midline shift is seen.
--- NOTE | 2018-06-17 21:35 | XR ---
PROCEDURE: XR lumbosacral spine min 5 views DATE AND TIME: 06/17/2018 9:09 PM CLINICAL INDICATION: Pain; Injury TECHNIQUE: Department protocol. COMPARISON: 06/09/2018 FINDINGS: There is no fracture or malalignment. There are moderate-plus facet osteoarthritis changes throughout the lumbar spine, with relatively mil d degenerative disc changes. IMPRESSION: NO ACUTE PROCESS.
--- NOTE | 2018-06-17 21:38 | XR ---
PROCEDURE: XR knee complete bilateral - total 6 views DATE AND TIME: 06/17/2018 9:09 PM CLINICAL INDICATION: Pain TECHNIQUE: 3 views right knee and 3 views left knee COMPARISON: None FINDINGS: There is no fracture or malalignment. The soft tissues are unremarkable. Mild tricompartmental joint space narrowing is noted, but no marginal osteophytosis or subchondral sc lerosis. There is a mild heterogeneity to the skeletal attenuation throughout the visualized skeletal structur es. Subtle vascular calcification noted, consistent with nonaneurysmal atherosclerotic changes. IMPRESSION: XR KNEE COMPLETE BILATERAL - NO ACUTE PROCESS.
[2018-06-17 21:53] VITALS: BP 165/65; PULSE 81; TEMP 98.2
== END 2018-06-17 23:00 | disposition home or self-care (01) ==
LOC: EC 18:35
DX: S80.01XA Contusion of right knee, initial encounter (principal); S80.02XA Contusion of left knee, initial encounter; F03.90 Unspecified dementia, unspecified severity, without behavioral disturbance, psychotic disturbance, mood disturbance, and anxiety; S00.83XA Contusion of other part of head, initial encounter; Z53.8 Procedure and treatment not carried out for other reasons; E03.9 Hypothyroidism, unspecified; M54.2 Cervicalgia; Z88.0 Allergy status to penicillin; Z88.1 Allergy status to other antibiotic agents; Z79.899 Other long term (current) drug therapy; Z81.8 Family history of other mental and behavioral disorders; M54.5 Low back pain
CPT/HCPCS: 70450; 72110; 72125; 99284

== ENCOUNTER 2018-11-01 18:01 | Inpatient (IN) | payer MEDICARE ==
[2018-11-01] MEDS ORDERED: ACETAMINOPHEN TAB 500 MG TAB PO STA (18:04)
[2018-11-01] MEDS ORDERED: SODIUM CHLORIDE 0.9% 1,000 ML IV STA ×2 (18:04)
[2018-11-01] MEDS ORDERED: IBUPROFEN 600 MG TAB PO STA (18:04)
--- NOTE | 2018-11-01 18:12 | ED ---
Fever HPI - General Stated Complaint: fever Time Seen by Provider: 11/01/18 18:03 - History of Present Illness Initial Comments: This is an 88-year-old female the ER for evaluation. Patient with a for evaluation of fever. Patient is completely unresponsive and inability to provide history. Patient is a DO NOT RESUSCITATE per record. Patient is brought in by EMS history obtained from EMS as well as patient's chart MD Complaint: fever, weakness -: unknown Temperature Source: subjective, oral Context: sick contacts, multiple patients with similar symptoms Associated Symptoms: chills, confusion Treatments Prior to Arrival: none - Related Data Home Medications Medication Instructions Recorded Confirmed Acetaminophen Tab [Tylenol] 650 mg PO Q4H PRN 05/21/18 11/01/18 Atorvastatin [Lipitor] 20 mg PO HS@199905/21/18 11/01/18 Ergocalciferol (Vitamin D2) 50,000 unit PO MEZA 05/21/18 11/01/18 [Vitamin D2] Escitalopram [Lexapro] 20 mg PO DAILY@0800 05/21/18 11/01/18 Levothyroxine Sodium [Synthroid] 75 mcg PO DAILY@0800 05/21/18 11/01/18 Memantine [Namenda] 10 mg PO BID@0800,199905/21/18 11/01/18 busPIRone HCl [Buspar] 10 mg PO TID@0800,1400,199905/21/18 11/01/18 Divalproex ER [Depakote ER] 500 mg PO HS@199906/17/18 11/01/18 OLANZapine [ZyPREXA] 2.5 mg PO TID@0800,1400,199906/17/18 11/01/18 Diclofenac Sodium [Voltaren Gel] 4 gram TOPICAL BID@0800,199911/01/18 11/01/18 Furosemide [Lasix] 20 mg PO Q48H 11/01/18 11/01/18 Ibuprofen [Motrin] 800 mg PO Q8H PRN 11/01/18 11/01/18 Losartan [Cozaar] 12.5 mg PO HS@1800 11/01/18 11/01/18 Previous Rx's Medication Instructions Recorded Levofloxacin [Levaquin] 750 mg PO Q48H #4 tab 11/04/18 Allergies Allergy/AdvReac Type Severity Reaction Status Date / Time erythromycin base Allergy Unknown Verified 11/01/18 18:28 Penicillins Allergy Unknown Verified 11/01/18 18:28 Review of Systems ROS Statement: Those systems with pertinent positive or pertinent negative responses have been documented in the HPI. ROS Other: All systems not noted in ROS Statement are negative. Past Medical History Past Medical History: Thyroid Disorder Additional Past Medical History / Comment(s): Sister and Cierra WEISS states that pt does not currently have a PCP and has not gone to the doctors much the past several years. Other hx: Severe memory impairment, hypothyroid, gait dysfunction, sinus problems. History of Any Multi-Drug Resistant Organisms: None Reported Past Surgical History: Adenoidectomy, Appendectomy, Tonsillectomy Additional Past Surgical History / Comment(s): Bilateral cataract removal with lens implants. Past Anesthesia/Blood Transfusion Reactions: No Reported Reaction Past Psychological History: No Psychological Hx Reported Smoking Status: Never smoker Past Alcohol Use History: None Reported Past Drug Use History: None Reported - Past Family History Father Family Medical History: Myocardial Infarction (NH) Additional Family Medical History / Comment(s): Father of a NH at the age of 80 yrs. Mother Family Medical History: Dementia Brother(s) Family Medical History: Dementia General Exam Limitations: altered mental status General appearance: alert, in no apparent distress Head exam: Present: atraumatic, normocephalic, normal inspection Eye exam: Present: normal appearance, PERRL, EOMI. Absent: scleral icterus, conjunctival injection, periorbital swelling ENT exam: Present: normal exam, mucous membranes moist Neck exam: Present: normal inspection. Absent: tenderness, meningismus, lymphadenopathy Respiratory exam: Present: normal lung sounds bilaterally. Absent: respiratory distress, wheezes, rales, rhonchi, stridor Cardiovascular Exam: Present: regular rate, normal rhythm, normal heart sounds. Absent: systolic murmur, diastolic murmur, rubs, gallop, clicks GI/Abdominal exam: Present: soft, normal bowel sounds. Absent: distended, tenderness, guarding, rebound, rigid Extremities exam: Present: normal inspection, full ROM, normal capillary refill. Absent: tenderness, pedal edema, joint swelling, calf tenderness Back exam: Present: normal inspection Neurological exam: Present: alert, oriented X3, CN II-XII intact Psychiatric exam: Present: normal affect, normal mood Skin exam: Present: warm, dry, intact, normal color. Absent: rash Course Vital Signs 11/01/18 11/01/18 11/01/18 18:09 18:16 20:08 Temperature 100.3 F H 98.9 F Pulse Rate 86 79 Respiratory 16 20 18 Rate Blood Pressure 96/53 115/75 O2 Sat by Pulse 97 98 Oximetry 11/01/18 21:00 Temperature Pulse Rate Respiratory 16 Rate Blood Pressure 91/51 O2 Sat by Pulse Oximetry - Reevaluation(s) Reevaluation #1: 11/01/18 18:27 Medical record is reviewed Medical Decision Making - Medical Decision Making 88 female the ER for evaluation. Patient is underlying history of dementia, poor strain, patient is a fever will be admitted to rule out sepsis. Bacteremia. - Lab Data Result diagrams: 11/04/18 06:41 11/04/18 06:41 Lab Results 11/01/18 11/01/18 11/01/18 Range/Units 18:30 18:30 18:30 WBC 14.0 H (3.8-10.6) k/uL RBC 4.06 (3.80-5.40) m/uL Hgb 12.0 (11.4-16.0) gm/dL Hct 36.9 (34.0-46.0) % MCV 90.9 (80.0-100.0) fL MCH 29.7 (25.0-35.0) pg MCHC 32.7 (31.0-37.0) g/dL RDW 13.7 (11.5-15.5) % Plt Count 209 (150-450) k/uL Neutrophils % 86 % Lymphocytes % 7 % Monocytes % 4 % Eosinophils % 1 % Basophils % 1 % Neutrophils # 12.1 H (1.3-7.7) k/uL Lymphocytes # 1.0 (1.0-4.8) k/uL Monocytes # 0.5 (0-1.0) k/uL Eosinophils # 0.2 (0-0.7) k/uL Basophils # 0.1 (0-0.2) k/uL Sodium 140 (137-145) mmol/L Potassium 4.3 (3.5-5.1) mmol/L Chloride 106 (98-107) mmol/L Carbon Dioxide 26 (22-30) mmol/L Anion Gap 8 mmol/L BUN 25 H (7-17) mg/dL Creatinine 1.33 H (0.52-1.04) mg/dL Est GFR (CKD-EPI)AfAm 42 (>60 ml/min/1.73 sqM) Est GFR (CKD-EPI)NonAf 36 (>60 ml/min/1.73 sqM) Glucose 126 H (74-99) mg/dL Lactic Ac Sepsis Rflx Plasma Lactic Acid Nathan 3.4 H* (0.7-2.0) mmol/L Calcium 8.4 (8.4-10.2) mg/dL Total Bilirubin 0.7 (0.2-1.3) mg/dL AST 30 (14-36) U/L ALT 23 (9-52) U/L Alkaline Phosphatase 57 (38-126) U/L Total Protein 5.8 L (6.3-8.2) g/dL Albumin 2.9 L (3.5-5.0) g/dL Urine Color Urine Appearance (Clear) Urine pH (5.0-8.0) Ur Specific [place] (1.001-1.035) Urine Protein (Negative) Urine Glucose (UA) (Negative) Urine Ketones (Negative) Urine Blood (Negative) Urine Nitrite (Negative) Urine Bilirubin (Negative) Urine Urobilinogen (<2.0) mg/dL Ur Leukocyte Esterase (Negative) Urine WBC (0-5) /hpf Ur Squamous Epith Cells (0-4) /hpf Urine Mucus (None) /hpf Influenza Type A RNA (Not Detectd) Influenza Type B (PCR) (Not Detectd) 11/01/18 11/01/18 11/01/18 Range/Units 19:17 20:00 20:00 WBC (3.8-10.6) k/uL RBC (3.80-5.40) m/uL Hgb (11.4-16.0) gm/dL Hct (34.0-46.0) % MCV (80.0-100.0) fL MCH (25.0-35.0) pg MCHC (31.0-37.0) g/dL RDW (11.5-15.5) % Plt Count (150-450) k/uL Neutrophils % % Lymphocytes % % Monocytes % % Eosinophils % % Basophils % % Neutrophils # (1.3-7.7) k/uL Lymphocytes # (1.0-4.8) k/uL Monocytes # (0-1.0) k/uL Eosinophils # (0-0.7) k/uL Basophils # (0-0.2) k/uL Sodium (137-145) mmol/L Potassium (3.5-5.1) mmol/L Chloride (98-107) mmol/L Carbon Dioxide (22-30) mmol/L Anion Gap mmol/L BUN (7-17) mg/dL Creatinine (0.52-1.04) mg/dL Est GFR (CKD-EPI)AfAm (>60 ml/min/1.73 sqM) Est GFR (CKD-EPI)NonAf (>60 ml/min/1.73 sqM) Glucose (74-99) mg/dL Lactic Ac Sepsis Rflx Y Plasma Lactic Acid Nathan (0.7-2.0) mmol/L Calcium (8.4-10.2) mg/dL Total Bilirubin (0.2-1.3) mg/dL AST (14-36) U/L ALT (9-52) U/L Alkaline Phosphatase (38-126) U/L Total Protein (6.3-8.2) g/dL Albumin (3.5-5.0) g/dL Urine Color Yellow Urine Appearance Clear (Clear) Urine pH 6.5 (5.0-8.0) Ur Specific [place] 1.027 (1.001-1.035) Urine Protein 1+ H (Negative) Urine Glucose (UA) Negative (Negative) Urine Ketones 1+ H (Negative) Urine Blood Negative (Negative) Urine Nitrite Negative (Negative) Urine Bilirubin Negative (Negative) Urine Urobilinogen 2.0 (<2.0) mg/dL Ur Leukocyte Esterase Negative (Negative) Urine WBC 5 (0-5) /hpf Ur Squamous Epith Cells <1 (0-4) /hpf Urine Mucus Rare H (None) /hpf Influenza Type A RNA Not Detected (Not Detectd) Influenza Type B (PCR) Not Detected (Not Detectd) - EKG Data -: EKG Interpreted by Me (EKG shows normal sinus rhythm rate of 85, KS 184, QRS 86, QTc 480) - Radiology Data Radiology results: report reviewed (Chest x-rays negative for acute disease), image reviewed Disposition Clinical Impression: Dementia, Sepsis Disposition: ADMITTED IP TO THIS HOSP Condition: Stable Is patient prescribed a controlled substance at d/c from ED?: No
[2018-11-01 19:03] LABS: Basophils # (A) 0.1 k/uL (0-0.2); Basophils % (A) 1 %; Eosinophils # (A) 0.2 k/uL (0-0.7); Eosinophils % (A) 1 %; HCT 36.9 % (34.0-46.0); Lymphocytes % (A) 7 %; MCH 29.7 pg (25.0-35.0); MCHC 32.7 g/dL (31.0-37.0); MCV 90.9 fL (80.0-100.0); Mean Platelet Volume 6.1; Monocytes # (A) 0.5 k/uL (0-1.0); Monocytes % (A) 4 %; Neutrophils # (A) 12.1 k/uL (1.3-7.7); Neutrophils % (A) 86 %; Platelet Count 209 k/uL (150-450); RBC 4.06 m/uL (3.80-5.40); RDW 13.7 % (11.5-15.5)
[2018-11-01 19:12] LABS: Albumin 2.9 g/dL (3.5-5.0); Calcium 8.4 mg/dL (8.4-10.2); Potassium 4.3 mmol/L (3.5-5.1); Total Bilirubin 0.7 mg/dL (0.2-1.3); Total Protein 5.8 g/dL (6.3-8.2)
[2018-11-01] MEDS ORDERED: LEVOFLOXACIN 750MG-D5W PMX 750 MG in DEXTROSE/WATER 1 150ML.BAG IVPB STA (20:11)
[2018-11-01 20:25] LABS: Appearance,Urine Clear (Clear); Bilirubin,Urine Negative (Negative); Blood,Urine Negative (Negative); Color,Urine Yellow; Glucose,Urine (UA) Negative (Negative); Ketones,Urine 1+ (Negative); Leukocyte Esterase,Urine Negative (Negative); Mucus,Urine Rare /hpf; Nitrite,Urine Negative (Negative); PH, Urine 6.5 (5.0-8.0); Protein,Urine 1+ (Negative); Specific Gravity,Urine 1.027 (1.001-1.035); Squamous Epithelial Cell,Urine <1 /hpf (0-4); WBC,Urine 5 /hpf (0-5)
--- NOTE | 2018-11-01 21:05 | XR ---
EXAMINATION TYPE: XR chest 2V DATE OF EXAM: 11/01/2018 COMPARISON: Chest radiograph 06/09/2018 HISTORY: Dyspnea TECHNIQUE: Frontal and lateral views of the chest are obtained. FINDINGS: Small bilateral pleural effusions with associated atelectasis. No pneumothorax. Heart is e nlarged. Osseous structures are without acute pathology. IMPRESSION: Cardiomegaly with small bilateral pleural effusions. The findings may relate to congestive heart fail ure.
[2018-11-01] MEDS: SODIUM CHLORIDE 0.9% 500 ML 500 ML IV SCH ×3 (21:57→23:10)
[2018-11-01] MEDS: SODIUM CHLORIDE 0.9% 1,000 ML IV SCH (23:09)
[2018-11-01] MEDS: HYDROCORTISONE SUCCINATE 100 MG/2 ML VIAL IV SCH (23:09)
[2018-11-01 23:43] VITALS: BMI 28.2
[2018-11-02] MEDS: SODIUM CHLORIDE 0.9% 1,000 ML IV SCH ×3 (02:55→16:16)
[2018-11-02] MEDS: HYDROCORTISONE SUCCINATE 100 MG/2 ML VIAL IV SCH ×3 (05:23→23:26)
[2018-11-02] MEDS ORDERED: ENOXAPARIN 40 MG/0.4 ML SYRINGE SQ SCH (09:00)
[2018-11-02] MEDS ORDERED: PANTOPRAZOLE 40 MG/10 ML VIAL IV SCH (09:00)
[2018-11-02] MEDS ORDERED: ENOXAPARIN 30 MG/0.3 ML SYRINGE SQ SCH (16:10)
[2018-11-02] MEDS: LACTATED RINGERS 1,000 ML IV SCH (20:13)
[2018-11-02] MEDS: DIVALPROEX ER 500 MG TAB.ER.24H PO SCH (20:13)
[2018-11-02] MEDS: OLANZapine 2.5 MG TAB PO SCH (20:13)
[2018-11-02] MEDS: busPIRone HCl 10 MG TAB PO SCH (20:14)
[2018-11-02] MEDS: DICLOFENAC SODIUM GEL 100 GM TUBE TOPICAL SCH (20:14)
--- NOTE | 2018-11-02 21:43 | HP ---
HISTORY AND PHYSICAL DATE OF ADMISSION: 11/01/2018. DATE OF SERVICE: 11/02/2018 PRESENTING COMPLAINT: Fever. HISTORY OF PRESENTING COMPLAINT: This is an 88-year-old patient who follows with Dr. Yang from [facility]. The patient is rather lethargic, not able to give any history. Per the EMS run sheet, per the nurse, EMS was called. The patient was having fevers, felt lethargic and the patient was brought in. The patient not able to communicate much. The patient can only say a few words here and there. Rather tired appearing. The patient was felt to have pneumonia on admission with lactic acidosis, started on IV fluids, given fluid boluses. Also put on IV Levaquin. The patient was reported to have a fever of [address] and here initially patient did have a fever 100.3, none since then. The patient has been more awake as the day has gone on. REVIEW OF SYSTEMS: Cannot tell as patient is barely communicative. PAST MEDICAL HISTORY: Hypothyroid, severe memory impairment, gait dysfunction, sinus problems. PAST SURGICAL HISTORY: Adenoidectomy, appendectomy, tonsillectomy, bilateral cataract removal, lens implant. SOCIAL HISTORY: Patient lives alone. ( ) 6 years ago. Has a walker, does not use it. The patient is cared for by a sister who gets in. Sister buys her frozen dinners. The patient has been managing her own medications. No smoking. No alcohol. FAMILY HISTORY: Father of a heart attack age of 80. HOME MEDICATIONS: 1. Buspirone 10 mg p.o. t.i.d. 2. Zyprexa 2.5 p.o. t.i.d. 3. Namenda 10 mg b.i.d. 4. Cozaar 12.5 p.o. q.h.s. 5. Synthroid 75 mcg a day. 6. Motrin 800 mg p.o. q.8h p.r.n. 7. Lasix 20 mg q.48 hours. 8. Lexapro 20 mg p.o. daily. 9. Vitamin D2 38577 units on Saturday. 10.Depakote ER 500 mg p.o. q.h.s. 11.Voltaren Gel 4 grams topical b.i.d. 12.Lipitor 20 mg p.o. q.h.s. 13.Tylenol 650 mg q.4 p.r.n. ALLERGIES: AZITHROMYCIN, PENICILLIN. PHYSICAL EXAMINATION: Vital signs on presentation: Temperature 100.3, pulse 86, respiration 16, blood pressure 96/53, pulse ox 97% on 2 L. GENERAL APPEARANCE: Average build, lying in bed, arousable but confused. EYES: Pupils equal. Conjunctivae pale. HEENT: External appearance of ears and nose normal. Oral cavity dry. NECK: JVD unable to assess. Mass not palpable. Respiratory effort increased LUNGS: Decreased breath sounds. CARDIOVASCULAR: 1st and 2nd sounds. No edema. ABDOMEN: Soft, nontender. Liver and spleen not palpable. LYMPHATICS: No lymph node palpable in neck or axilla. PSYCHIATRY: Unable to assess. The patient does say a few words but lethargic. NEUROLOGICAL: Pupils equal. No facial asymmetry. Moving her limbs. MUSCULOSKELETAL: Evidence of severe osteoarthritis, especially hands and knees. INVESTIGATIONS: White count 14, hemoglobin 12, platelets 209, potassium 4.3, BUN 25, creatinine 1.33. Lactic acid 3.4. UA negative for nitrite and leukocyte esterase. Influenza type A and B negative. EKG tracing personally reviewed by me shows some flipped T-waves in the inferolateral leads. Chest x-ray film personally reviewed by me shows some basilar infiltrates. ASSESSMENT: 1. Bilateral pneumonia with lactic acidosis/sepsis present on admission. Could be aspiration pneumonia due to altered mental status. 2. Acute metabolic encephalopathy could be from pneumonia, sepsis, present admission. 3. Hypothyroidism. 4. Alzheimer's dementia for which patient is on Aricept with appears to be moderate to major cognitive impairment. 5. Chronic gait dysfunction. PLAN: The patient is on IV Levaquin, was put on IV fluids. Home medications will be resumed. Will do aspiration precautions with all feeding to be assisted. Lovenox for DVT prophylaxis. Will keep on the neuro checks. Currently no family is present. MMODL / IJN: [id number] /
[2018-11-03] MEDS: PANTOPRAZOLE 40 MG TABLET PO SCH (06:44)
[2018-11-03 07:39] LABS: Basophils % (A) 0 %; Eosinophils % (A) 0 %; HCT 33.2 % (34.0-46.0); HGB 10.6 gm/dL (11.4-16.0); Lymphocytes # (A) 1.3 k/uL (1.0-4.8); Lymphocytes % (A) 12 %; MCH 29.7 pg (25.0-35.0); MCHC 31.8 g/dL (31.0-37.0); MCV 93.3 fL (80.0-100.0); Mean Platelet Volume 6.7; Monocytes # (A) 0.3 k/uL (0-1.0); Monocytes % (A) 2 %; Neutrophils # (A) 9.6 k/uL (1.3-7.7); Neutrophils % (A) 84 %; Platelet Count 171 k/uL (150-450); RBC 3.56 m/uL (3.80-5.40); RDW 13.5 % (11.5-15.5); WBC 11.4 k/uL (3.8-10.6)
[2018-11-03] MEDS: DICLOFENAC SODIUM GEL 100 GM TUBE TOPICAL SCH ×2 (07:45→20:21)
[2018-11-03] MEDS: LACTATED RINGERS 1,000 ML IV SCH ×2 (07:47→21:40)
[2018-11-03 07:50] LABS: Calcium 7.7 mg/dL (8.4-10.2); Potassium 3.9 mmol/L (3.5-5.1)
[2018-11-03] MEDS: HYDROCORTISONE SUCCINATE 100 MG/2 ML VIAL IV SCH ×2 (07:51→17:01)
[2018-11-03] MEDS: ESCITALOPRAM 20 MG TAB PO SCH (07:51)
[2018-11-03] MEDS: OLANZapine 2.5 MG TAB PO SCH ×3 (07:51→20:22)
[2018-11-03] MEDS: busPIRone HCl 10 MG TAB PO SCH ×3 (07:51→20:22)
[2018-11-03] MEDS: LEVOTHYROXINE 75 MCG TAB PO SCH (07:52)
[2018-11-03] MEDS ORDERED: LEVOFLOXACIN 750MG-D5W PMX 750 MG in DEXTROSE/WATER 1 150ML.BAG IVPB SCH (09:00)
[2018-11-03] MEDS: DIVALPROEX ER 500 MG TAB.ER.24H PO SCH (20:22)
[2018-11-04] MEDS: HYDROCORTISONE SUCCINATE 100 MG/2 ML VIAL IV SCH ×2 (00:29→08:12)
[2018-11-04 05:01] VITALS: RESP 18
[2018-11-04] MEDS: PANTOPRAZOLE 40 MG TABLET PO SCH (06:41)
[2018-11-04 06:56] LABS: Basophils % (A) 0 %; Eosinophils % (A) 0 %; HCT 29.8 % (34.0-46.0); HGB 10.1 gm/dL (11.4-16.0); Lymphocytes # (A) 1.3 k/uL (1.0-4.8); Lymphocytes % (A) 15 %; MCH 30.7 pg (25.0-35.0); MCHC 33.9 g/dL (31.0-37.0); MCV 90.5 fL (80.0-100.0); Mean Platelet Volume 6.6; Monocytes # (A) 0.3 k/uL (0-1.0); Monocytes % (A) 3 %; Neutrophils # (A) 7.1 k/uL (1.3-7.7); Neutrophils % (A) 81 %; Platelet Count 174 k/uL (150-450); RBC 3.29 m/uL (3.80-5.40); RDW 13.9 % (11.5-15.5); WBC 8.8 k/uL (3.8-10.6)
[2018-11-04 07:17] LABS: Calcium 7.7 mg/dL (8.4-10.2); Potassium 3.4 mmol/L (3.5-5.1)
--- NOTE | 2018-11-04 07:27 | PN ---
PROGRESS NOTE DATE OF SERVICE: 11/03/2018 PRESENT COMPLAINT: Tired. INTERVAL HISTORY: This patient was seen by me yesterday evening. Patient was admitted with bilateral pneumonia with sepsis, possible aspiration pneumonia. Patient doing much better today, sitting up, awake, tolerating a diet, overall looking much better. REVIEW OF SYSTEMS: Done for constitutional, cardiovascular, GI, pulmonary; relevant findings as above. CURRENT MEDICATIONS: Reviewed that include p.o. Levaquin. PHYSICAL EXAMINATION: Temperature 98.2, pulse 76, respiration 18, blood pressure 120/73, pulse ox 95% on room air. GENERAL APPEARANCE: Sitting up, awake, answering questions. EYES: Pupils equal. Conjunctivae are pale. NECK: JVD not raised. Mass not palpable. RESPIRATORY: Effort increased LUNGS: Decreased breath sounds. CARDIOVASCULAR: First and second sound normal, no edema. ABDOMEN: Soft, nontender. Liver and spleen not palpable. PSYCHIATRY: Awake, answering questions more appropriately. INVESTIGATIONS: White count 11.4, hemoglobin 10.6, potassium 3.9, BUN 26, creatinine 0.95. Urine culture negative. ASSESSMENT: 1. Bilateral pneumonia with lactic acid sepsis present on admission, probably aspiration pneumonia with good clinical response. 2. Acute metabolic for pneumonia, sepsis, much improved. 3. Hypothyroidism. 4. Mild to moderate cognitive impairment, probably from Alzheimer's dementia. 5. Chronic gait dysfunction. PLAN: Continue current on patient antibiotics for another 24 hours. IV fluids will be cut back. Patient overall doing much better. Will follow. MMODL / IJN: [id number] /
[2018-11-04] MEDS: DICLOFENAC SODIUM GEL 100 GM TUBE TOPICAL SCH (08:08)
[2018-11-04] MEDS: OLANZapine 2.5 MG TAB PO SCH ×2 (08:13→14:53)
[2018-11-04] MEDS: busPIRone HCl 10 MG TAB PO SCH ×2 (08:13→14:53)
[2018-11-04] MEDS: ESCITALOPRAM 20 MG TAB PO SCH (08:13)
[2018-11-04] MEDS: LEVOTHYROXINE 75 MCG TAB PO SCH (08:13)
[2018-11-04] MEDS: LACTATED RINGERS 1,000 ML IV SCH (08:14)
[2018-11-04] MEDS ORDERED: ENOXAPARIN 40 MG/0.4 ML SYRINGE SQ SCH (09:00)
[2018-11-04 12:40] VITALS: BP 165/88; PULSE 61; TEMP 98.1
[2018-11-04] MEDS ORDERED: POTASSIUM CHLORIDE ER 20 MEQ TAB.ER PO STA (14:53)
[2018-11-05] MEDS ORDERED: LEVOFLOXACIN 750 MG TAB PO SCH (09:00)
--- NOTE | 2018-11-05 09:14 | DS ---
DISCHARGE SUMMARY DATE OF ADMISSION: 11/01/2018 DATE OF DISCHARGE: 11/04/2018 FINAL DIAGNOSES: 1. Bilateral pneumonia, lactic acidosis and sepsis likely from aspiration pneumonia, present on admission. 2. Acute metabolic encephalopathy from pneumonia and sepsis, much improved. 3. Hypothyroidism. 4. Mild cognitive impairment probably from Alzheimer's dementia. 5. Chronic gait dysfunction. HOSPITAL COURSE: This patient presented with pneumonia. Tired, was given antibiotics to which she responded well. Today, she is eating and drinking, very keen to go home. Overall feeling much better. PHYSICAL EXAMINATION: Afebrile, pulse 51, respiration 18, blood pressure 165/80, pulse ox 91% on room air. LUNGS: Improved air entry. CARDIOVASCULAR: First and second sounds normal. LABS: White count 8.8, potassium 3.4. BUN 21, creatinine 0.79. DISCHARGE MEDICATIONS: 1. Tylenol 650 mg q.4 p.r.n. 2. Lipitor 20 mg q.h.s. 3. Vitamin D2 fifty thousand units p.o. on Saturday. 4. Cipro 20 mg p.o. daily. 5. Synthroid 75 mcg p.o. daily. 6. Namenda 10 mg p.o. b.i.d. 7. BuSpar 10 mg p.o. t.i.d. 8. Depakote ER 5 mg q.h.s. 9. Zyprexa 2.5 mg p.o. t.i.d. 10.Motrin Gel 4 g topical b.i.d. 11.Lasix 20 mg p.o. q.48 hours. 12.Motrin 800 mg q.8 p.r.n. 13.Cozaar 12.5 p.o. q.h.s. 14.Levaquin 750 mg p.o. q.48 hours foot tablets. FOLLOWUP: Follow up with [facility], Dr. Yang in 2 days. [facility] to follow. DISPOSITION: [facility]. MMODL / IJN: [id number] /
== END 2018-11-04 16:48 | DRG 871 ==
LOC: EC 18:01 → 3SCARD 20:12
PROVIDERS: ADMIT Hospitalist; ATTEND Hospitalist
DX: A41.9 Sepsis, unspecified organism (principal); G93.41 Metabolic encephalopathy; J69.0 Pneumonitis due to inhalation of food and vomit; E87.2 Acidosis; E03.9 Hypothyroidism, unspecified; F02.80 Dementia in other diseases classified elsewhere, unspecified severity, without behavioral disturbance, psychotic disturbance, mood disturbance, and anxiety; G30.9 Alzheimer's disease, unspecified; Z66 Do not resuscitate; Z79.890 Hormone replacement therapy; Z82.49 Family history of ischemic heart disease and other diseases of the circulatory system; Z96.1 Presence of intraocular lens; Z98.41 Cataract extraction status, right eye; Z98.42 Cataract extraction status, left eye; Z79.899 Other long term (current) drug therapy; Z79.1 Long term (current) use of non-steroidal anti-inflammatories (NSAID); Z88.1 Allergy status to other antibiotic agents; Z88.0 Allergy status to penicillin
CPT/HCPCS: 36415; 71046; 80048; 80053; 81001; 83605; 83880; 85025; 87040; 87086; 87502; 93005; 96365; 96366; 99285